=== PATIENT | male | born 1960 | race Caucasian/White ===

== ENCOUNTER → 2016-04-19 | Outpatient (CLI) | payer OTHER ==
[2016-01-08 19:43] VITALS: BP 120/98
[~2016-04-19] MED LIST: ALPR0.5T6 PO; ASPI325T4 PO; ATOR20TA PO; CYCL10TA2 PO; FERR325T72 PO; METH4TAB2 PO; NAPR375T3 PO; PIRF267C PO; PRAS10TA4 PO; PROAIR HFA8.5 GM INH; SERT50TA8 PO; TRIA15CR3 TP
[2016-04-19 23:11] LABS: RHEUMATOID FACTOR 84.7 IU/mL (0.0-13.9)
[2016-04-22 11:15] LABS: SCL 70 ANTIBODY <0.2 AI (0.0-0.9)
== END | disposition home or self-care (01) ==
LOC: LAB 12:28
PROVIDERS: ATTEND Internal Medicine Pulmonary Disease
DX: J84.10 Pulmonary fibrosis, unspecified (principal)
CPT/HCPCS: 36415; 86235; 86431

== ENCOUNTER 2016-05-25 23:10 | Emergency (ER) | payer OTHER ==
[~2016-05-25] VITALS: Ht 177.8 cm; Wt 65.8 kg
[2016-05-25 23:30] LABS: BASO # 0.1 x10^3/uL (0.0-0.2); BASO % 1 % (0-3); EOS % 5 % (0-3); HEMATOCRIT 33.9 % (39.0-53.0); LYMPH # 2.4 x10^3/uL (1.0-4.8); LYMPH % 17 % (24-48); MEAN CORPUSCULAR HEMOGLOBIN 21 pg (25-35); MEAN CORPUSCULAR HGB CONC 30 g/dL (31-37); MEAN CORPUSCULAR VOLUME 71 fL (79-100); MONO % 7 % (0-9); NEUT % 71 % (31-73); PLATELET COUNT 406 x10^3/uL (140-400); RED BLOOD COUNT 4.76 x10^6/uL (4.30-5.70); WHITE BLOOD COUNT 14.6 x10^3/uL (4.0-11.0)
[2016-05-25 23:43] LABS: ANION GAP 9 (6-14); BLOOD UREA NITROGEN 14 mg/dL (8-26); CARBON DIOXIDE 31 mmol/L (21-32); CHLORIDE 102 mmol/L (98-107); CREATININE 0.9 mg/dL (0.7-1.3); GFR 87.3; GLUCOSE 101 mg/dL (70-99); POTASSIUM 3.9 mmol/L (3.5-5.1); SODIUM 142 mmol/L (136-145)
[2016-05-25 23:44] LABS: ANISOCYTOSIS MOD; HYPOCHROMIA MOD; MICROCYTOSIS MOD; PLT ESTIMATE INCREASED (ADEQUATE); POIKILOCYTOSIS SLIGHT; TARGET CELLS FEW
[2016-05-25 23:45] LABS: OVALOCYTES OCC
[2016-05-25] MEDS ORDERED: ASPIRIN 81 MG TAB.CHEW PO ONE (23:45)
[2016-05-25 23:48] LABS: ALBUMIN 3.3 g/dL (3.4-5.0); ALK PHOS 102 U/L (46-116); ALT (SGPT) 13 U/L (16-63); AST (SGOT) 16 U/L (15-37); DIRECT BILIRUBIN < 0.1 mg/dL (0.0-0.2); TOTAL BILIRUBIN 0.2 mg/dL (0.2-1.0); TOTAL PROTEIN 8.2 g/dL (6.4-8.2)
--- NOTE | 2016-05-26 03:13 | PHYS DOC ---
Past Medical History Past Medical History: Anxiety, CAD, Hypertension, LA, Pneumonia, Seizure Additional Past Medical Histor: pulmonary fibrosis Past Surgical History: Tonsillectomy Additional Past Surgical Histo: cardiac cath with 2 stents Alcohol Use: Occasionally Drug Use: Marijuana Adult General Chief Complaint Chief Complaint: CHEST PAIN HPI HPI 55-year-old male presenting to the emergency department today with pain in the left chest which is worse with inspiration. It is sharp nonradiating moderate intermittent and currently improving. He denies unilateral leg swelling history of blood clotting disorder. He denies recent immobilization. He has a history of an LA in the past with 2 stents placed. Otherwise he has hypertension and history of chronic pulmonary fibrosis. Review of systems is negative for abdominal pain nausea vomiting fevers chills and diaphoresis. All other review of systems is negative unless otherwise noted in history of present illness. Review of Systems Review of Systems SEE ABOVE. Current Medications Current Medications Current Medications Medications (Trade) Dose Ordered Sig/Tiana Start Time Stop Time Status Last Admin Dose Admin Aspirin (Children'S Aspirin) 324 mg 1X ONCE 05/25/16 23:45 05/25/16 23:46 DC 05/26/16 00:05 324 MG Allergies Allergies Allergies Coded Allergies Type Severity Reaction Last Updated Verified No Known Drug Allergies 11/14/15 No Physical Exam Physical Exam Constitutional: Well developed, well nourished, no acute distress, non-toxic appearance. HENT: Normocephalic, atraumatic, bilateral external ears normal, oropharynx moist, no oral exudates, nose normal. [] Eyes: PERRLA, EOMI, conjunctiva normal, no discharge. Neck: Normal range of motion, no tenderness, supple, no stridor. [] Cardiovascular:Heart rate regular rhythm, no murmur Lungs & Thorax: Clear lung sounds bilaterally Abdomen: Bowel sounds normal, soft, no tenderness, no masses, no pulsatile masses. [] Skin: Warm, dry, no erythema, no rash. Back: No tenderness, no CVA tenderness. [] Extremities: No tenderness, no cyanosis, no clubbing, ROM intact, no edema. Neurologic: Alert and oriented X 3, normal motor function, normal sensory function, no focal deficits noted. [] Psychologic: Affect normal, judgement normal, mood normal. [] Current Patient Data Vital Signs Vital Signs Date Time Temp Pulse Resp B/P Pulse Ox O2 Delivery O2 Flow Rate FiO2 05/26/16 00:31 110 22 116/77 100 Nasal Cannula 3 05/25/16 23:10 97.8 97.8 Lab Values Laboratory Tests Test 05/25/16 23:20 05/26/16 02:35 White Blood Count 14.6x10^3/uL (4.0-11.0) H Red Blood Count 4.76x10^6/uL (4.30-5.70) Hemoglobin 10.0g/dL (13.0-17.5) L Hematocrit 33.9% (39.0-53.0) L Mean Corpuscular Volume 71fL (79-100) L Mean Corpuscular Hemoglobin 21pg (25-35) L Mean Corpuscular Hemoglobin Concent 30g/dL (31-37) L Red Cell Distribution Width 25.0% (11.5-14.5) H Platelet Count 406x10^3/uL (140-400) H Neutrophils (%) (Auto) 71% (31-73) Lymphocytes (%) (Auto) 17% (24-48) L Monocytes (%) (Auto) 7% (0-9) Eosinophils (%) (Auto) 5% (0-3) H Basophils (%) (Auto) 1% (0-3) Neutrophils # (Auto) 10.3x10^3uL (1.8-7.7) H Lymphocytes # (Auto) 2.4x10^3/uL (1.0-4.8) Monocytes # (Auto) 1.0x10^3/uL (0.0-1.1) Eosinophils # (Auto) 0.8x10^3/uL (0.0-0.7) H Basophils # (Auto) 0.1x10^3/uL (0.0-0.2) Platelet Estimate Increased (ADEQUATE) Hypochromasia Mod Poikilocytosis Slight Anisocytosis Mod Microcytosis Mod Target Cells Few Ovalocytes Occ Sodium Level 142mmol/L (136-145) Potassium Level 3.9mmol/L (3.5-5.1) Chloride Level 102mmol/L (98-107) Carbon Dioxide Level 31mmol/L (21-32) Anion Gap 9 (6-14) Blood Urea Nitrogen 14mg/dL (8-26) Creatinine 0.9mg/dL (0.7-1.3) Estimated GFR (Cockcroft-Gault) 87.3 Glucose Level 101mg/dL (70-99) H Calcium Level 9.0mg/dL (8.5-10.1) Total Bilirubin 0.2mg/dL (0.2-1.0) Direct Bilirubin < 0.1mg/dL (0.0-0.2) Aspartate Amino Transferase (AST) 16U/L (15-37) Alanine Aminotransferase (ALT) 13U/L (16-63) L Alkaline Phosphatase 102U/L (46-116) Troponin I Quantitative < 0.017ng/mL (0.000-0.055) < 0.017ng/mL (0.000-0.055) UX-Jqi-D-Type Natriuretic Peptide 33pg/mL (0-124) Total Protein 8.2g/dL (6.4-8.2) Albumin 3.3g/dL (3.4-5.0) L Lipase 88U/L (73-393) Laboratory Tests 05/25/16 23:20 Laboratory Tests 05/25/16 23:20 EKG EKG [] EKG shows sinus tachycardia. [place] normal. Intervals normal. ST segments are congruent V3 shows variable baseline. Radiology/Procedures Radiology/Procedures [] Chest x-ray shows chronic pulmonary fibrosis similar to previous on 2015. Patient has no clinical symptoms of pneumonia. No cough no fever. Course & Med Decision Making Course & Med Decision Making Pertinent Labs and Imaging studies reviewed. (See chart for details) [] 55-year-old male presenting to the emergency department today with chest pain. Vital signs afebrile with mild tachycardia. Otherwise baseline O2 rate of 3 L which he has at home. EKG showed mild tachycardia. Otherwise unremarkable. Chest x-ray showed chronic pulmonary fibrosis. Patient does not have cough or fever. White blood cell count is elevated however seems to be chronically elevated. After clinical correlation and did not believe this patient has pneumonia. Troponin negative 2. Otherwise blood work unremarkable. I offered admission to the patient for cardiology consultation however the patient declined. He desired to follow-up with his personnel consultant on the outpatient which I felt was reasonable. His doctor is Dr. Rene. I placed his contact information and the discharge paperwork. Follow-up on Friday. Dragon Disclaimer Dragon Disclaimer This electronic medical record was generated, in whole or in part, using a voice recognition dictation system. Departure Departure Impression: Primary Impression: Chest pain Disposition: HOME, SELF-CARE Condition: STABLE Referrals: JOHN DAMON MD (PCP) NEREYDA NOLASCO MD on friday Patient Instructions: Chest Pain (Nonspecific) Additional Instructions: Thank you for allowing us to participate in your care today. Followup with your personnel consultant Dr. Nolasco on Friday. If you do not have a primary care provider you can ask for a list of our primary care providers. Return to the emergency department you have any new or concerning findings. This should be evaluated by the primary care physician and any necessary consulting services for continued management within a few days after discharge. Return to emergency room if you have any new or concerning symptoms including but not limited to fever, chills, nausea, vomiting, intractable pain, any new rashes, chest pain, shortness of air, uncontrolled bleeding, difficulty breathing, and/or vision loss. You may have been prescribed medication that can change in your level of thinking and ability to operate machinery. These medications include hydrocodone and Ativan. Also, Benadryl has been known to do this as well. Be sure to check with your pharmacist and ask if the medications you've prescribed can affect your level of consciousness. I recommend not operating heavy machinery or driving while on medication such as these. MABLE ALLRED MD May 26, 2016 03:13
[2016-05-26 03:27] VITALS: BP 113/79
--- NOTE | 2016-05-26 08:00 | RAD ---
Indication chest pain. A single view of the chest was obtained and is compared to an examination 12/27/2015. Extensive chronic changes are noted. A significant change in the appearance of the chest is not seen. The heart and pulmonary vessels are similar. IMPRESSION: Extensive chronic fibrotic changes. A significant change or acute process is not seen
--- NOTE | 2016-05-26 11:32 | EKG ---
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
== END 2016-05-26 03:50 | disposition home or self-care (01) ==
LOC: ER 23:10
DX: R07.9 Chest pain, unspecified (principal); I25.10 Atherosclerotic heart disease of native coronary artery without angina pectoris; I10 Essential (primary) hypertension; I25.2 Old myocardial infarction; F12.10 Cannabis abuse, uncomplicated; Z95.5 Presence of coronary angioplasty implant and graft
CPT/HCPCS: 36415; 71010; 80048; 80076; 83690; 83880; 84484; 85007; 85027; 93005; 99285-25

== ENCOUNTER 2016-06-21 11:11 | Day surgery (SDC) | payer OTHER ==
[~2016-06-21 11:11] MED LIST changes: +CIPROFLOXACIN 0.3% OPHTH SOLUTION 2.5ML BOTTLE. OS ONE; +EPINEPHRINE 0.2 MG in BALANCED SALT IRR SOLN (BAG) 500 ML IO ONE; +FENTANYL PF 100 MCG/2 ML VIAL. IV PRN; +FLUT9.9S NS; +HYDROMORPHONE 2 MG/ML VIAL. IV PRN; +IV RINGERS,LACTATED 1000ML 1,000 ML IV SCH; +LIDOCAINE 1% 1 ML SYRINGE. ID PRN; +MORPHINE SULFATE 2 MG/ML DISP.SYRIN. IV PRN; +ONDANSETRON PF 4 MG/2 ML VIAL. IV PRN; +PANT40TA5 PO; +PROCHLORPERAZINE 10 MG/2 ML VIAL. IV PRN; +PROPARACAINE 0.5% OPHTH SOLUTION 15ML BOTTLE. OS ONE; +SERT100T PO
[2016-06-21] MEDS ORDERED: NEO/POLYMYX/DEXAMETH OPHTH OINTMENT 3.5GM TUBE. ONE (11:46)
[2016-06-21] MEDS ORDERED: LIDOCAINE 1% PF 2 ML VIAL. ONE (11:47)
[2016-06-21] MEDS: CYCLOPENTOLATE 1% OPTH SOLUTION 2ML BOTTLE. OS SCH ×3 (12:46→12:56)
[2016-06-21] MEDS: PHENYLEPHRINE 10% OPHTH SOLUTION 5ML BOTTLE. OS SCH ×3 (12:46→12:52)
[2016-06-21] MEDS: LIDOCAINE 2% JELLY 6ML IN APPLICATOR. MM PRN ×2 (13:14→13:26)
[2016-06-21] MEDS ORDERED: MIDAZOLAM HCL 2 MG/2 ML VIAL. ONE (14:23)
[2016-06-21] MEDS ORDERED: BALANCED SALT IRRIG OPHTH SOLN 15 ML BOTTLE. IRR ONE (14:49)
[2016-06-21] MEDS ORDERED: CHONDROIT-SOD-HYALURONATE KIT. OS ONE (14:49)
[2016-06-21] MEDS ORDERED: NEO/POLYMYX/DEXAMETH OPHTH OINTMENT 3.5GM TUBE. OS ONE (15:07)
[2016-06-21] MEDS ORDERED: ALBUTEROL SULFATE 2.5 MG/3 ML NEBU. ONE (15:50)
[2016-06-21 16:00] VITALS: BP 120/78
[2016-06-21] MEDS ORDERED: ALBUTEROL SULFATE 2.5 MG/3 ML NEBU. NEB ONE (16:00)
--- NOTE | 2016-06-21 19:15 | OP ---
DATE OF SURGERY: 06/21/2016 PREOPERATIVE DIAGNOSIS: Posterior subcapsular cataract in the left eye. POSTOPERATIVE DIAGNOSIS: Posterior subcapsular cataract in the left eye. PROCEDURE: Phacoemulsification with posterior chamber lens implant, left eye. ANESTHESIA: Topical with MAC. DESCRIPTION OF PROCEDURE: The patient's dilating drops and topical lidocaine were applied in the outpatient area. The patient was then brought to the operating room, positioned on the table. A [place] balloon cuff had been placed for about 15-20 minutes. The left eye was prepped and draped in usual sterile manner for an intraocular procedure and a lid speculum placed between the eyelids. A paracentesis incision was made inferotemporally and lidocaine 1% injected into the anterior chamber. This was followed by injection of Viscoat and then the primary 2.4 mm incision was made temporally. A capsulorrhexis was made with a bent needle and capsulorrhexis forceps and then the lens nucleus hydrodissected. The lens was easily phacoemulsified with the phaco handpiece and then the cortex cleaned up with the I/A handle. Provisc was used to insufflate the bag and a posterior chamber lens placed into the bag without difficulty. The lens was positioned and the eye was pressurized after the viscoelastic had been aspirated. The wound was checked for leaks and there were none. The eye looked good at the end of the case and the lid speculum and drape were removed. Maxitrol ointment was instilled in the conjunctival sac and the eye was shielded. The patient was taken to the recovery room in satisfactory condition. I will follow up with him over the next couple of days. K MARINE FLORES MD DR: JANINE/sundar JOB#: [id number] / [id number]
== END 2016-06-21 16:25 | disposition home or self-care (01) ==
LOC: SURG 11:11
PROVIDERS: ATTEND Ophthalmology
DX: H25.042 Posterior subcapsular polar age-related cataract, left eye (principal); E78.00 Pure hypercholesterolemia, unspecified; I10 Essential (primary) hypertension; J44.9 Chronic obstructive pulmonary disease, unspecified; M19.90 Unspecified osteoarthritis, unspecified site; K21.9 Gastro-esophageal reflux disease without esophagitis; F32.9 Major depressive disorder, single episode, unspecified; Z72.0 Tobacco use; D64.9 Anemia, unspecified; Z87.39 Personal history of other diseases of the musculoskeletal system and connective tissue
CPT/HCPCS: 66984; C1780; J0171; J2250

== ENCOUNTER 2016-07-03 21:13 | Inpatient (IN) | payer OTHER ==
[~2016-07-03] VITALS: Ht 172.7 cm; Wt 53.1 kg
[~2016-07-03 21:13] MED LIST changes: -CIPROFLOXACIN 0.3% OPHTH SOLUTION 2.5ML BOTTLE. OS ONE; -EPINEPHRINE 0.2 MG in BALANCED SALT IRR SOLN (BAG) 500 ML IO ONE; -FENTANYL PF 100 MCG/2 ML VIAL. IV PRN; -HYDROMORPHONE 2 MG/ML VIAL. IV PRN; -IV RINGERS,LACTATED 1000ML 1,000 ML IV SCH; -LIDOCAINE 1% 1 ML SYRINGE. ID PRN; -MORPHINE SULFATE 2 MG/ML DISP.SYRIN. IV PRN; -ONDANSETRON PF 4 MG/2 ML VIAL. IV PRN; -PROCHLORPERAZINE 10 MG/2 ML VIAL. IV PRN; -PROPARACAINE 0.5% OPHTH SOLUTION 15ML BOTTLE. OS ONE
[2016-07-03 21:28] LABS: BASO % 0 % (0-3); EOS % 0 % (0-3); HEMATOCRIT 33.8 % (39.0-53.0); HEMOGLOBIN 10.1 g/dL (13.0-17.5); LYMPH # 1.5 x10^3/uL (1.0-4.8); LYMPH % 4 % (24-48); MEAN CORPUSCULAR HEMOGLOBIN 21 pg (25-35); MEAN CORPUSCULAR HGB CONC 30 g/dL (31-37); MEAN CORPUSCULAR VOLUME 71 fL (79-100); MONO % 4 % (0-9); NEUT % 91 % (31-73); PLATELET COUNT 400 x10^3/uL (140-400); RED BLOOD COUNT 4.78 x10^6/uL (4.30-5.70); RED CELL DISTRIBUTION WIDTH 22.2 % (11.5-14.5); WHITE BLOOD COUNT 36.5 x10^3/uL (4.0-11.0)
[2016-07-03] MEDS ORDERED: ONDANSETRON PF 4 MG/2 ML VIAL. IV PRN (21:30)
[2016-07-03] MEDS ORDERED: methylPREDNISolone SOD SUCC PF 125 MG/2 ML VIAL. IV ONE (21:30)
[2016-07-03] MEDS ORDERED: IPRATRPIUM/ALBUTEROL 0.5/2.5MG 3 ML NEBU. NEB ONE (21:30)
[2016-07-03] MEDS ORDERED: MORPHINE SULFATE 2 MG/ML DISP.SYRIN. IV PRN (21:30)
--- NOTE | 2016-07-03 21:32 | PHYS DOC ---
Past Medical History Past Medical History: Anxiety, CAD, Hypertension, [place], Pneumonia, Seizure Additional Past Medical Histor: pulmonary fibrosis Past Surgical History: Tonsillectomy Additional Past Surgical Histo: cardiac cath with 2 stents Alcohol Use: Occasionally Drug Use: Marijuana Adult General Chief Complaint Chief Complaint: SHORTNESS OF BREATH HPI HPI 56-year-old male with a history of pulmonary fibrosis presenting to the emergency department today with shortness of breath since about 5:00 this evening. He also complains of left sided shoulder pain. His pain is sharp nonradiating intermittent and without alleviating factors. He denies nausea vomiting or diaphoresis. He denies fevers or cough. Review of systems is negative for hemoptysis, unilateral leg swelling, history of blood clotting disorder. Negative for abdominal pain nausea vomiting or diaphoresis. All other review of systems is negative unless otherwise noted in history of present illness. Review of Systems Review of Systems SEE ABOVE. Current Medications Current Medications Current Medications Medications (Trade) Dose Ordered Sig/Tiana Start Time Stop Time Status Last Admin Dose Admin Albuterol/ Ipratropium (Duoneb) 3 ml 1X ONCE 07/03/16 21:30 07/03/16 21:31 DC 07/03/16 22:22 3 ML Methylprednisolone Sodium Succinate (Solu-Medrol 125mg Vial) 125 mg 1X ONCE 07/03/16 21:30 07/03/16 21:31 DC 07/03/16 21:26 125 MG Morphine Sulfate 2 mg PRN Q2HR PRN 07/03/16 21:30 07/04/16 21:29 07/03/16 21:59 2 MG Ondansetron HCl (Zofran) 4 mg PRN Q8HRS PRN 07/03/16 21:30 07/04/16 21:29 Allergies Allergies Allergies Coded Allergies Type Severity Reaction Last Updated Verified No Known Drug Allergies 06/21/16 No Physical Exam Physical Exam Constitutional: Well developed, well nourished, initially the patient was in a tripod position with significant retractions and pursed lipped breathing present. Respiratory distress present. HENT: Normocephalic, atraumatic, bilateral external ears normal, oropharynx moist, no oral exudates, nose normal. Eyes: PERRLA, EOMI, conjunctiva normal, no discharge. [] Neck: Normal range of motion, no tenderness, supple, no stridor. [] Cardiovascular:Heart rate regular rhythm, no murmur Lungs & Thorax: Patient has diffuse crackles and harsh lung sounds on inspiration and expiration with a mildly prolonged expert phase. Wheezing present as well. Abdomen: Bowel sounds normal, soft, no tenderness, no masses, no pulsatile masses. Skin: Warm, dry, no erythema, no rash. [] Back: No tenderness, no CVA tenderness. Extremities: No tenderness, no cyanosis, no clubbing, ROM intact, no edema. [] Neurologic: Alert and oriented X 3, normal motor function, normal sensory function, no focal deficits noted. [] Psychologic: Affect normal, judgement normal, mood normal. Current Patient Data Vital Signs Vital Signs Date Time Temp Pulse Resp B/P Pulse Ox O2 Delivery O2 Flow Rate FiO2 07/03/16 21:35 130 38 127/75 97 BiPAP/CPAP 07/03/16 21:15 99.2 4 99.2 Lab Values Laboratory Tests Test 07/03/16 21:19 White Blood Count 36.5x10^3/uL (4.0-11.0) H Red Blood Count 4.78x10^6/uL (4.30-5.70) Hemoglobin 10.1g/dL (13.0-17.5) L Hematocrit 33.8% (39.0-53.0) L Mean Corpuscular Volume 71fL (79-100) L Mean Corpuscular Hemoglobin 21pg (25-35) L Mean Corpuscular Hemoglobin Concent 30g/dL (31-37) L Red Cell Distribution Width 22.2% (11.5-14.5) H Platelet Count 400x10^3/uL (140-400) Neutrophils (%) (Auto) 91% (31-73) H Lymphocytes (%) (Auto) 4% (24-48) L Monocytes (%) (Auto) 4% (0-9) Eosinophils (%) (Auto) 0% (0-3) Basophils (%) (Auto) 0% (0-3) Neutrophils # (Auto) 33.3x10^3uL (1.8-7.7) H Lymphocytes # (Auto) 1.5x10^3/uL (1.0-4.8) Monocytes # (Auto) 1.5x10^3/uL (0.0-1.1) H Eosinophils # (Auto) 0.0x10^3/uL (0.0-0.7) Basophils # (Auto) 0.0x10^3/uL (0.0-0.2) Segmented Neutrophils % 63% (35-66) Band Neutrophils % 24% (0-9) H Lymphocytes % 8% (24-48) L Monocytes % 5% (0-10) Platelet Estimate Increased (ADEQUATE) Polychromasia Slight Hypochromasia Mod Anisocytosis Mod Microcytosis Mod Sodium Level 136mmol/L (136-145) Potassium Level 3.7mmol/L (3.5-5.1) Chloride Level 97mmol/L (98-107) L Carbon Dioxide Level 27mmol/L (21-32) Anion Gap 12 (6-14) Blood Urea Nitrogen 15mg/dL (8-26) Creatinine 0.9mg/dL (0.7-1.3) Estimated GFR (Cockcroft-Gault) 87.0 Glucose Level 123mg/dL (70-99) H Calcium Level 9.7mg/dL (8.5-10.1) Total Bilirubin 0.4mg/dL (0.2-1.0) Direct Bilirubin 0.1mg/dL (0.0-0.2) Aspartate Amino Transferase (AST) 22U/L (15-37) Alanine Aminotransferase (ALT) 21U/L (16-63) Alkaline Phosphatase 108U/L (46-116) Troponin I Quantitative < 0.017ng/mL (0.000-0.055) PG-Ntn-U-Type Natriuretic Peptide 219pg/mL (0-124) H Total Protein 9.4g/dL (6.4-8.2) H Albumin 3.4g/dL (3.4-5.0) Lipase 44U/L (73-393) L Laboratory Tests 07/03/16 21:19 Laboratory Tests 07/03/16 21:19 EKG EKG [] EKG shows sinus rhythm with a regular rate. [place] mildly leftward. Intervals show mildly prolonged QTC. Otherwise within normal limits. ST segments are congruent. Not suggestive of ischemia. Radiology/Procedures Radiology/Procedures [] Chest x-ray compared to previous on May 26, 2016 shows chronic pulmonary fibrosis without any acute changes. Course & Med Decision Making Course & Med Decision Making Pertinent Labs and Imaging studies reviewed. (See chart for details) [] 56-year-old male presenting to the emergency department with acute respiratory failure. Oxygen saturation was in the mid to high 70s on initial presentation with significant respiratory distress clinically. The patient was placed on face mask which was then transitioned to BiPAP which improved the patient's symptoms and O2 saturations. Chest x-ray shows no acute changes. EKG appears nonischemic. Blood work obtained. Patient was given a DuoNeb in the emergency department along with IV steroids. Patient does not have a fever and otherwise does not have a clinical presentation suggestive of pneumonia. Given the patient's leukocytosis, the patient was covered with IV Rocephin for possible superimposed pneumonia though his clinical symptomatology is not suggestive of pneumonia. I discussed the case with Dr. Jeff who accepted the patient for transition of care at approximately 945pm. Dragon Disclaimer Dragon Disclaimer This electronic medical record was generated, in whole or in part, using a voice recognition dictation system. Departure Departure Impression: Primary Impression: Acute respiratory failure with hypoxia Additional Impressions: Pulmonary fibrosis COPD (chronic obstructive pulmonary disease) Dyspnea Disposition: 09 ADMITTED INPATIENT Admitting Physician: Edy Ovalles Condition: IMPROVED Referrals: JOHN DAMON MD (PCP) Problem Qualifiers MABLE ALLRED MD Jul 03, 2016 21:32
[2016-07-03 21:37] LABS: CALCIUM 9.7 mg/dL (8.5-10.1); CREATININE 0.9 mg/dL (0.7-1.3); POTASSIUM 3.7 mmol/L (3.5-5.1)
[2016-07-03 21:43] LABS: ALBUMIN 3.4 g/dL (3.4-5.0); DIRECT BILIRUBIN 0.1 mg/dL (0.0-0.2); TOTAL BILIRUBIN 0.4 mg/dL (0.2-1.0); TOTAL PROTEIN 9.4 g/dL (6.4-8.2)
[2016-07-03 22:05] LABS: ANISOCYTOSIS MOD; HYPOCHROMIA MOD; MICROCYTOSIS MOD; PLT ESTIMATE INCREASED (ADEQUATE); POLYCHROMASIA SLIGHT
--- NOTE | 2016-07-03 22:28 | ACF ---
Admission Forms Criteria RESPIRATORY FAILURE [facility] Clinical Indications for Admission to Inpatient Care (Place 'X' for any and all applicable criteria): Hospital admission is needed for appropriate care of the patient because of acute respiratory failure or insufficiency as indicated by ANY ONE of the following(1)(2)(3)(4)(5)(6)(7)(8): [X]I. Mechanical ventilation needed (acute invasive or noninvasive) [ ]II. Severe ventilation deficit as indicated by ANY ONE of the following (9) [ ]a) Respiratory acidosis (pH less than 7.32 and partial pressure of carbon dioxide greater than 40 mm Hg (5.3 kPa)) [ ]b) Partial pressure of carbon dioxide greater than 44 mm Hg (5.9 kPa ) (new) [ ]c) Airflow measurements less than 25% of predicted (eg, peak expiratory flow rate less than 100 L/minute) [ ]d) Forced vital capacity less than 15 mL/kg of ideal body weight, or 50% decrease in vital capacity from baseline [ ]III. Noncardiac pulmonary edema not resolving with rapid emergency treatment (8) [ ]IV. Severe respiratory distress as indicated by ANY ONE of the following: [ ]a) Severe tachypnea (respiratory rate greater than 30, greater than 45 for 6-month-old, greater than 60 for ) [ ]b) Severe hypoxemia (partial pressure of oxygen less than 50 mm Hg ( 6.7 kPa) on greater than 50% oxygen or partial pressure of oxygen to FIO2 ratio less than 200) [ ]c) Mental status deterioration from respiratory disease [ ]V. Airway obstruction or inadequate protection [A](10)(11) The original [employer] content created by [employer] has been revised. The portions of the content which have been revised are identified through the use of italic text or in bold, and [employer] has neither reviewed nor approved the modified material. All other unmodified content is copyright [employer]. Please see references footnoted in the original [employer] edition 2016 Admission Criteria Met?: Yes HE MAE Jul 03, 2016 22:28
[2016-07-03 23:21] VITALS: BP 105/62
[2016-07-03] MEDS ORDERED: CEFTRIAXONE 1GM IVPB FOR OMNI 50 ML IV ONE (23:30)
[2016-07-03 23:33] LABS: FIO2 ABG 40; HCO3 ABG 23 mmol/L (21-28); PCO2 ABG 37 mmHg (35-46); PH ABG 7.41 (7.35-7.45); PO2 ABG 114 mmHg (75-108); SAT O2 ABG 98 % (92-99)
[2016-07-03] MEDS ORDERED: DIFL5DRO2 OP (23:36)
[2016-07-03] MEDS ORDERED: IPRA3AMP NEB (23:36)
[2016-07-03 23:37] VITALS: BP 104/64
[2016-07-03 23:45] VITALS: BP 111/65
[2016-07-04] VITALS (14 sets, daily range): BP systolic 93–123; BP diastolic 57–73
[2016-07-04 03:50] LABS: BASO % 0 % (0-3); EOS % 0 % (0-3); HEMATOCRIT 30.1 % (39.0-53.0); HEMOGLOBIN 8.8 g/dL (13.0-17.5); LYMPH % 3 % (24-48); MEAN CORPUSCULAR HEMOGLOBIN 21 pg (25-35); MEAN CORPUSCULAR HGB CONC 29 g/dL (31-37); MEAN CORPUSCULAR VOLUME 71 fL (79-100); MONO % 2 % (0-9); NEUT % 96 % (31-73); PLATELET COUNT 345 x10^3/uL (140-400); RED BLOOD COUNT 4.24 x10^6/uL (4.30-5.70); RED CELL DISTRIBUTION WIDTH 21.8 % (11.5-14.5)
[2016-07-04 04:44] LABS: CALCIUM 8.7 mg/dL (8.5-10.1); CREATININE 0.8 mg/dL (0.7-1.3); GFR 99.6; POTASSIUM 4.5 mmol/L (3.5-5.1)
--- NOTE | 2016-07-04 06:35 | EKG ---
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
--- NOTE | 2016-07-04 07:55 | RAD ---
EXAM: Chest, single view. HISTORY: Chest pain. COMPARISON: 05/26/2016. FINDINGS: A frontal view of the chest is obtained. There has been no significant change in predominantly peripheral right apical and bilateral lower lobe coarse increased interstitial markings likely due to chronic interstitial lung disease. This includes areas of bronchiectasis and honeycombing. There is stable right hemithorax volume loss with rightward deviation of the trachea. There is no effusion or pneumothorax. There is no cardiomegaly. IMPRESSION: Stable findings consistent with chronic interstitial lung disease, including areas of bronchiectasis, honeycombing and right apical architectural distortion. This limits evaluation for underlying interstitial infiltrate.
[2016-07-04] MEDS: IPRATRPIUM/ALBUTEROL 0.5/2.5MG 3 ML NEBU. NEB SCH ×4 (08:01→18:09)
[2016-07-04] MEDS ORDERED: SERT100T PO (08:34)
--- NOTE | 2016-07-04 08:44 | PDOC ---
PROGRESS NOTES Subjective Subjective Patient reports breathing is much better than at admission. Objective Objective Vital Signs Date Time Temp Pulse Resp B/P Pulse Ox O2 Delivery O2 Flow Rate FiO2 07/04/16 08:02 100 Nasal Cannula 2.0 07/04/16 07:00 97 18 123/65 07/04/16 04:00 97.9 97.9 Intake and Output 07/04/16 07:00 Intake Total 230 ml Balance 230 ml Intake Oral 180 ml IV Total 50 ml Physical Exam Abdomen: Normal bowel sounds, Soft, No tenderness Heart: Regular rate Extremities: No edema General: Alert, Oriented X3, No acute distress Lungs: Other (dry crackles throughout, mild expiratory wheezes) Assessment Assessment Problems Medical Problems: (1) Acute respiratory failure with hypoxia Status: Acute (2) COPD (chronic obstructive pulmonary disease) Status: Acute (3) Dyspnea Status: Acute (4) Pulmonary fibrosis Status: Acute Plan Plan of Care 1. Acute on chronic respiratory failure with pulmonary fibrosis - patient required Bipap for a short time last night, now breathing comfortably at rest on O2 per NC. CXR without acute infiltrate. Pulmonary consult pending. Continue O2 and nebs, patient received one large dose of Solumedrol in ER. 2. chest pain with history of CAD - patient received a stent last summer and has apparently had no follow up with Cardiology since then. He reports a history of some intermittent chest pains recently. The pain was worse last evening when he was struggling to breath, but seems to have occurred at other times also. Troponin is WNL. Cardiology consult pending. Patient denies any CP at this time. Continue ASA and statin. 3. chronic anxiety and depression - continue home meds. 4. leukocytosis - patient's WBC's were markedly elevated at admission, even before receiving steroids. Hgb also decreased. Will follow lab and consider further evaluation if indicated. 5. hyperglycemia - check A1C. Patient denies history of DM. Comment Review of Relevant I have reviewed the following items claribel (where applicable) has been applied. Labs Laboratory Tests Test 07/03/16 21:19 07/03/16 22:30 07/03/16 23:30 07/04/16 03:35 White Blood Count 36.5x10^3/uL (4.0-11.0) 37.0x10^3/uL (4.0-11.0) Red Blood Count 4.78x10^6/uL (4.30-5.70) 4.24x10^6/uL (4.30-5.70) Hemoglobin 10.1g/dL (13.0-17.5) 8.8g/dL (13.0-17.5) Hematocrit 33.8% (39.0-53.0) 30.1% (39.0-53.0) Mean Corpuscular Volume 71fL (79-100) 71fL (79-100) Mean Corpuscular Hemoglobin 21pg (25-35) 21pg (25-35) Mean Corpuscular Hemoglobin Concent 30g/dL (31-37) 29g/dL (31-37) Red Cell Distribution Width 22.2% (11.5-14.5) 21.8% (11.5-14.5) Platelet Count 400x10^3/uL (140-400) 345x10^3/uL (140-400) Neutrophils (%) (Auto) 91% (31-73) 96% (31-73) Lymphocytes (%) (Auto) 4% (24-48) 3% (24-48) Monocytes (%) (Auto) 4% (0-9) 2% (0-9) Eosinophils (%) (Auto) 0% (0-3) 0% (0-3) Basophils (%) (Auto) 0% (0-3) 0% (0-3) Neutrophils # (Auto) 33.3x10^3uL (1.8-7.7) 35.3x10^3uL (1.8-7.7) Lymphocytes # (Auto) 1.5x10^3/uL (1.0-4.8) 1.0x10^3/uL (1.0-4.8) Monocytes # (Auto) 1.5x10^3/uL (0.0-1.1) 0.7x10^3/uL (0.0-1.1) Eosinophils # (Auto) 0.0x10^3/uL (0.0-0.7) 0.0x10^3/uL (0.0-0.7) Basophils # (Auto) 0.0x10^3/uL (0.0-0.2) 0.0x10^3/uL (0.0-0.2) Segmented Neutrophils % 63% (35-66) Band Neutrophils % 24% (0-9) Lymphocytes % 8% (24-48) Monocytes % 5% (0-10) Platelet Estimate Increased (ADEQUATE) Polychromasia Slight Hypochromasia Mod Anisocytosis Mod Microcytosis Mod Sodium Level 136mmol/L (136-145) 135mmol/L (136-145) Potassium Level 3.7mmol/L (3.5-5.1) 4.5mmol/L (3.5-5.1) Chloride Level 97mmol/L (98-107) 99mmol/L (98-107) Carbon Dioxide Level 27mmol/L (21-32) 27mmol/L (21-32) Anion Gap 12 (6-14) 9 (6-14) Blood Urea Nitrogen 15mg/dL (8-26) 19mg/dL (8-26) Creatinine 0.9mg/dL (0.7-1.3) 0.8mg/dL (0.7-1.3) Estimated GFR (Cockcroft-Gault) 87.0 99.6 Glucose Level 123mg/dL (70-99) 142mg/dL (70-99) Calcium Level 9.7mg/dL (8.5-10.1) 8.7mg/dL (8.5-10.1) Total Bilirubin 0.4mg/dL (0.2-1.0) Direct Bilirubin 0.1mg/dL (0.0-0.2) Aspartate Amino Transf (AST/SGOT) 22U/L (15-37) Alanine Aminotransferase (ALT/SGPT) 21U/L (16-63) Alkaline Phosphatase 108U/L (46-116) Troponin I Quantitative < 0.017ng/mL (0.000-0.055) < 0.017ng/mL (0.000-0.055) SH-Lwl-I-Type Natriuretic Peptide 219pg/mL (0-124) Total Protein 9.4g/dL (6.4-8.2) Albumin 3.4g/dL (3.4-5.0) Lipase 44U/L (73-393) O2 Saturation 98% (92-99) Arterial Blood pH 7.41 (7.35-7.45) Arterial Blood pCO2 at Patient Temp 37mmHg (35-46) Arterial Blood pO2 at Patient Temp 114mmHg (75-108) Arterial Blood HCO3 23mmol/L (21-28) Arterial Blood Base Excess -1mmol/L (-3-3) FiO2 40 Lactic Acid Level 0.8mmol/L (0.4-2.0) Laboratory Tests Test 07/03/16 21:19 07/03/16 22:30 07/03/16 23:30 07/04/16 03:35 White Blood Count 36.5x10^3/uL (4.0-11.0) 37.0x10^3/uL (4.0-11.0) Red Blood Count 4.78x10^6/uL (4.30-5.70) 4.24x10^6/uL (4.30-5.70) Hemoglobin 10.1g/dL (13.0-17.5) 8.8g/dL (13.0-17.5) Hematocrit 33.8% (39.0-53.0) 30.1% (39.0-53.0) Mean Corpuscular Volume 71fL (79-100) 71fL (79-100) Mean Corpuscular Hemoglobin 21pg (25-35) 21pg (25-35) Mean Corpuscular Hemoglobin Concent 30g/dL (31-37) 29g/dL (31-37) Red Cell Distribution Width 22.2% (11.5-14.5) 21.8% (11.5-14.5) Platelet Count 400x10^3/uL (140-400) 345x10^3/uL (140-400) Neutrophils (%) (Auto) 91% (31-73) 96% (31-73) Lymphocytes (%) (Auto) 4% (24-48) 3% (24-48) Monocytes (%) (Auto) 4% (0-9) 2% (0-9) Eosinophils (%) (Auto) 0% (0-3) 0% (0-3) Basophils (%) (Auto) 0% (0-3) 0% (0-3) Neutrophils # (Auto) 33.3x10^3uL (1.8-7.7) 35.3x10^3uL (1.8-7.7) Lymphocytes # (Auto) 1.5x10^3/uL (1.0-4.8) 1.0x10^3/uL (1.0-4.8) Monocytes # (Auto) 1.5x10^3/uL (0.0-1.1) 0.7x10^3/uL (0.0-1.1) Eosinophils # (Auto) 0.0x10^3/uL (0.0-0.7) 0.0x10^3/uL (0.0-0.7) Basophils # (Auto) 0.0x10^3/uL (0.0-0.2) 0.0x10^3/uL (0.0-0.2) Segmented Neutrophils % 63% (35-66) Band Neutrophils % 24% (0-9) Lymphocytes % 8% (24-48) Monocytes % 5% (0-10) Platelet Estimate Increased (ADEQUATE) Polychromasia Slight Hypochromasia Mod Anisocytosis Mod Microcytosis Mod Sodium Level 136mmol/L (136-145) 135mmol/L (136-145) Potassium Level 3.7mmol/L (3.5-5.1) 4.5mmol/L (3.5-5.1) Chloride Level 97mmol/L (98-107) 99mmol/L (98-107) Carbon Dioxide Level 27mmol/L (21-32) 27mmol/L (21-32) Anion Gap 12 (6-14) 9 (6-14) Blood Urea Nitrogen 15mg/dL (8-26) 19mg/dL (8-26) Creatinine 0.9mg/dL (0.7-1.3) 0.8mg/dL (0.7-1.3) Estimated GFR (Cockcroft-Gault) 87.0 99.6 Glucose Level 123mg/dL (70-99) 142mg/dL (70-99) Calcium Level 9.7mg/dL (8.5-10.1) 8.7mg/dL (8.5-10.1) Total Bilirubin 0.4mg/dL (0.2-1.0) Direct Bilirubin 0.1mg/dL (0.0-0.2) Aspartate Amino Transf (AST/SGOT) 22U/L (15-37) Alanine Aminotransferase (ALT/SGPT) 21U/L (16-63) Alkaline Phosphatase 108U/L (46-116) Troponin I Quantitative < 0.017ng/mL (0.000-0.055) < 0.017ng/mL (0.000-0.055) FX-Rxq-U-Type Natriuretic Peptide 219pg/mL (0-124) Total Protein 9.4g/dL (6.4-8.2) Albumin 3.4g/dL (3.4-5.0) Lipase 44U/L (73-393) O2 Saturation 98% (92-99) Arterial Blood pH 7.41 (7.35-7.45) Arterial Blood pCO2 at Patient Temp 37mmHg (35-46) Arterial Blood pO2 at Patient Temp 114mmHg (75-108) Arterial Blood HCO3 23mmol/L (21-28) Arterial Blood Base Excess -1mmol/L (-3-3) FiO2 40 Lactic Acid Level 0.8mmol/L (0.4-2.0) Medications Current Medications Albuterol/ Ipratropium (Duoneb) 3 ml 1X ONCE NEB Last administered on 22:22; Start 07/03/16 at 21:30; Stop 07/03/16 at 21:31; Status DC Methylprednisolone Sodium Succinate (Solu-Medrol 125mg Vial) 125 mg 1X ONCE IV Last administered on 07/03/16 21:26; Start 07/03/16 at 21:30; Stop 07/03/16 at 21:31; Status DC Ondansetron HCl (Zofran) 4 mg PRN Q8HRS PRN IV NAUSEA/VOMITING; Start 07/03/16 at 21:30; Stop 07/04/16 at 21:29 Morphine Sulfate 2 mg PRN Q2HR PRN IV SEVERE PAIN Last administered on 21:59; Start 07/03/16 at 21:30; Stop 07/04/16 at 21:29 Albuterol/ Ipratropium 3 ml 3 ml RTQID NEB Last administered on 07/04/16 08:01 ; Start 07/04/16 at 08:00; Stop 07/05/16 at 07:59 Ceftriaxone Sodium (Rocephin 1gm Ivpb For Omni) 50 ml @ 100 mls/hr 1X ONCE IV Last administered on 07/04/16t 00:31; Start 07/03/16 at 23:30; Stop 07/03/16 at 23:59; Status DC Alprazolam (Xanax) 0.5 mg PRN Q8HRS PRN PO ANXIETY / AGITATION; Start 07/04/16 at 08:30 Aspirin (Nelson Aspirin) 325 mg DAILYWBKFT PO ; Start 07/04/16 at 09:00 Atorvastatin Calcium (Lipitor) 20 mg QHS PO ; Start 07/04/16 at 21:00 Cyclobenzaprine HCl (Flexeril) 10 mg TID PO ; Start 07/04/16 at 09:00 Pantoprazole Sodium (Protonix) 40 mg DAILYAC PO ; Start 07/04/16 at 09:00 Non-Formulary Medication 1 tab BID PO ; Start 07/04/16 at 09:00; Status UNV Active Scripts Active Zoloft (Sertraline Hcl) 100 Mg Tablet 1 Tab PO DAILY Cyclobenzaprine Hcl 10 Mg Tablet 1 Tab PO TID Naproxen 375 Mg Tablet 1 Tab PO BID Alprazolam 0.5 Mg Tablet 0.5 Mg PO Q8H PRN Lipitor (Atorvastatin Calcium) 20 Mg Tablet 1 Tab PO DAILY Aspirin 325 Mg Tablet 1 Tab PO DAILY Reported Duoneb 0.5-3(2.5) Mg/3 Ml (Albuterol/Ipratropium) 3 Ml Ampul.neb 3 Ml NEB QID Durezol (Difluprednate) 5 Ml Drops 5 Ml OP TID Pantoprazole Sodium 40 Mg Tablet.dr 40 Mg PO DAILY Esbriet (Pirfenidone) 267 Mg Capsule 3 Cap PO TID Proair Hfa Inhaler (Albuterol Sulfate) 8.5 Gm Hfa.aer.ad 1-2 Puff INH PRN Q6HRS PRN Vitals/I & O Vital Sign - Last 24 Hours 07/03/16 07/03/16 07/03/16 07/03/16 21:15 21:35 21:45 21:59 Temp 99.2 99.2 Pulse 132 130 130 Resp 43 38 27 37 B/P 145/83 127/75 130/77 Pulse Ox 72 97 100 O2 Delivery Nasal Cannula BiPAP/CPAP BiPAP/CPAP BiPAP/CPAP O2 Flow Rate 4 07/03/16 07/03/16 07/03/16 07/03/16 22:00 22:03 22:22 22:30 Pulse 130 126 Resp 27 29 B/P 139/79 122/76 Pulse Ox 100 95 98 100 O2 Delivery BiPAP/CPAP BiPAP/CPAP BiPAP/CPAP BiPAP/CPAP 07/03/16 07/03/16 07/03/16 07/03/16 22:31 23:00 23:10 23:15 Pulse 122 Resp 31 26 B/P 108/70 Pulse Ox 98 100 100 O2 Delivery BiPAP/CPAP BiPAP/CPAP BiPAP/CPAP Bi-pap 07/03/16 07/03/16 07/03/16 07/04/16 23:21 23:37 23:45 01:01 Temp 98.3 98.3 Pulse 117 116 116 109 Resp 24 23 B/P 105/62 104/64 111/65 106/65 Pulse Ox 100 100 100 100 O2 Delivery BiPAP/CPAP BiPAP/CPAP BiPAP/CPAP BiPAP/CPAP 07/04/16 07/04/16 07/04/16 07/04/16 01:43 02:00 03:00 03:49 Pulse 108 103 Resp 26 B/P 110/67 99/58 Pulse Ox 100 99 100 O2 Delivery BiPAP/CPAP Nasal Cannula Nasal Cannula Nasal Cannula O2 Flow Rate 4.0 4.0 2.0 07/04/16 07/04/16 07/04/16 07/04/16 04:00 05:00 06:00 07:00 Temp 97.9 97.9 Pulse 97 98 96 97 Resp 20 18 B/P 96/62 106/59 95/57 123/65 Pulse Ox 100 98 96 100 O2 Delivery Nasal Cannula Nasal Cannula Nasal Cannula Nasal Cannula O2 Flow Rate 2.0 2.0 2.0 2.0 07/04/16 08:02 Pulse Ox 100 O2 Delivery Nasal Cannula O2 Flow Rate 2.0 Intake and Output 07/03/16 07/03/16 07/04/16 15:00 23:00 07:00 Intake Total 230 ml Balance 230 ml JOHN DOWD MD Jul 04, 2016 08:44
--- NOTE | 2016-07-04 08:54 | PDOC ---
PULMONARY PROGRESS NOTES Vitals Vital Signs Date Time Temp Pulse Resp B/P Pulse Ox O2 Delivery O2 Flow Rate FiO2 07/04/16 08:02 100 Nasal Cannula 2.0 07/04/16 07:00 97 18 123/65 07/04/16 04:00 97.9 97.9 General: Alert, No acute distress Lungs: Crackles Cardiovascular: S1, S2 Abdomen: Soft Extremities: No Edema Labs Laboratory Tests Test 07/03/16 21:19 07/03/16 22:30 07/03/16 23:30 07/04/16 03:35 White Blood Count 36.5x10^3/uL (4.0-11.0) 37.0x10^3/uL (4.0-11.0) Red Blood Count 4.78x10^6/uL (4.30-5.70) 4.24x10^6/uL (4.30-5.70) Hemoglobin 10.1g/dL (13.0-17.5) 8.8g/dL (13.0-17.5) Hematocrit 33.8% (39.0-53.0) 30.1% (39.0-53.0) Mean Corpuscular Volume 71fL (79-100) 71fL (79-100) Mean Corpuscular Hemoglobin 21pg (25-35) 21pg (25-35) Mean Corpuscular Hemoglobin Concent 30g/dL (31-37) 29g/dL (31-37) Red Cell Distribution Width 22.2% (11.5-14.5) 21.8% (11.5-14.5) Platelet Count 400x10^3/uL (140-400) 345x10^3/uL (140-400) Neutrophils (%) (Auto) 91% (31-73) 96% (31-73) Lymphocytes (%) (Auto) 4% (24-48) 3% (24-48) Monocytes (%) (Auto) 4% (0-9) 2% (0-9) Eosinophils (%) (Auto) 0% (0-3) 0% (0-3) Basophils (%) (Auto) 0% (0-3) 0% (0-3) Neutrophils # (Auto) 33.3x10^3uL (1.8-7.7) 35.3x10^3uL (1.8-7.7) Lymphocytes # (Auto) 1.5x10^3/uL (1.0-4.8) 1.0x10^3/uL (1.0-4.8) Monocytes # (Auto) 1.5x10^3/uL (0.0-1.1) 0.7x10^3/uL (0.0-1.1) Eosinophils # (Auto) 0.0x10^3/uL (0.0-0.7) 0.0x10^3/uL (0.0-0.7) Basophils # (Auto) 0.0x10^3/uL (0.0-0.2) 0.0x10^3/uL (0.0-0.2) Segmented Neutrophils % 63% (35-66) Band Neutrophils % 24% (0-9) Lymphocytes % 8% (24-48) Monocytes % 5% (0-10) Platelet Estimate Increased (ADEQUATE) Polychromasia Slight Hypochromasia Mod Anisocytosis Mod Microcytosis Mod Sodium Level 136mmol/L (136-145) 135mmol/L (136-145) Potassium Level 3.7mmol/L (3.5-5.1) 4.5mmol/L (3.5-5.1) Chloride Level 97mmol/L (98-107) 99mmol/L (98-107) Carbon Dioxide Level 27mmol/L (21-32) 27mmol/L (21-32) Anion Gap 12 (6-14) 9 (6-14) Blood Urea Nitrogen 15mg/dL (8-26) 19mg/dL (8-26) Creatinine 0.9mg/dL (0.7-1.3) 0.8mg/dL (0.7-1.3) Estimated GFR (Cockcroft-Gault) 87.0 99.6 Glucose Level 123mg/dL (70-99) 142mg/dL (70-99) Calcium Level 9.7mg/dL (8.5-10.1) 8.7mg/dL (8.5-10.1) Total Bilirubin 0.4mg/dL (0.2-1.0) Direct Bilirubin 0.1mg/dL (0.0-0.2) Aspartate Amino Transf (AST/SGOT) 22U/L (15-37) Alanine Aminotransferase (ALT/SGPT) 21U/L (16-63) Alkaline Phosphatase 108U/L (46-116) Troponin I Quantitative < 0.017ng/mL (0.000-0.055) < 0.017ng/mL (0.000-0.055) QS-Xce-M-Type Natriuretic Peptide 219pg/mL (0-124) Total Protein 9.4g/dL (6.4-8.2) Albumin 3.4g/dL (3.4-5.0) Lipase 44U/L (73-393) O2 Saturation 98% (92-99) Arterial Blood pH 7.41 (7.35-7.45) Arterial Blood pCO2 at Patient Temp 37mmHg (35-46) Arterial Blood pO2 at Patient Temp 114mmHg (75-108) Arterial Blood HCO3 23mmol/L (21-28) Arterial Blood Base Excess -1mmol/L (-3-3) FiO2 40 Lactic Acid Level 0.8mmol/L (0.4-2.0) Laboratory Tests Test 07/03/16 21:19 07/03/16 22:30 07/03/16 23:30 07/04/16 03:35 White Blood Count 36.5x10^3/uL (4.0-11.0) 37.0x10^3/uL (4.0-11.0) Red Blood Count 4.78x10^6/uL (4.30-5.70) 4.24x10^6/uL (4.30-5.70) Hemoglobin 10.1g/dL (13.0-17.5) 8.8g/dL (13.0-17.5) Hematocrit 33.8% (39.0-53.0) 30.1% (39.0-53.0) Mean Corpuscular Volume 71fL (79-100) 71fL (79-100) Mean Corpuscular Hemoglobin 21pg (25-35) 21pg (25-35) Mean Corpuscular Hemoglobin Concent 30g/dL (31-37) 29g/dL (31-37) Red Cell Distribution Width 22.2% (11.5-14.5) 21.8% (11.5-14.5) Platelet Count 400x10^3/uL (140-400) 345x10^3/uL (140-400) Neutrophils (%) (Auto) 91% (31-73) 96% (31-73) Lymphocytes (%) (Auto) 4% (24-48) 3% (24-48) Monocytes (%) (Auto) 4% (0-9) 2% (0-9) Eosinophils (%) (Auto) 0% (0-3) 0% (0-3) Basophils (%) (Auto) 0% (0-3) 0% (0-3) Neutrophils # (Auto) 33.3x10^3uL (1.8-7.7) 35.3x10^3uL (1.8-7.7) Lymphocytes # (Auto) 1.5x10^3/uL (1.0-4.8) 1.0x10^3/uL (1.0-4.8) Monocytes # (Auto) 1.5x10^3/uL (0.0-1.1) 0.7x10^3/uL (0.0-1.1) Eosinophils # (Auto) 0.0x10^3/uL (0.0-0.7) 0.0x10^3/uL (0.0-0.7) Basophils # (Auto) 0.0x10^3/uL (0.0-0.2) 0.0x10^3/uL (0.0-0.2) Segmented Neutrophils % 63% (35-66) Band Neutrophils % 24% (0-9) Lymphocytes % 8% (24-48) Monocytes % 5% (0-10) Platelet Estimate Increased (ADEQUATE) Polychromasia Slight Hypochromasia Mod Anisocytosis Mod Microcytosis Mod Sodium Level 136mmol/L (136-145) 135mmol/L (136-145) Potassium Level 3.7mmol/L (3.5-5.1) 4.5mmol/L (3.5-5.1) Chloride Level 97mmol/L (98-107) 99mmol/L (98-107) Carbon Dioxide Level 27mmol/L (21-32) 27mmol/L (21-32) Anion Gap 12 (6-14) 9 (6-14) Blood Urea Nitrogen 15mg/dL (8-26) 19mg/dL (8-26) Creatinine 0.9mg/dL (0.7-1.3) 0.8mg/dL (0.7-1.3) Estimated GFR (Cockcroft-Gault) 87.0 99.6 Glucose Level 123mg/dL (70-99) 142mg/dL (70-99) Calcium Level 9.7mg/dL (8.5-10.1) 8.7mg/dL (8.5-10.1) Total Bilirubin 0.4mg/dL (0.2-1.0) Direct Bilirubin 0.1mg/dL (0.0-0.2) Aspartate Amino Transf (AST/SGOT) 22U/L (15-37) Alanine Aminotransferase (ALT/SGPT) 21U/L (16-63) Alkaline Phosphatase 108U/L (46-116) Troponin I Quantitative < 0.017ng/mL (0.000-0.055) < 0.017ng/mL (0.000-0.055) IX-Nfd-H-Type Natriuretic Peptide 219pg/mL (0-124) Total Protein 9.4g/dL (6.4-8.2) Albumin 3.4g/dL (3.4-5.0) Lipase 44U/L (73-393) O2 Saturation 98% (92-99) Arterial Blood pH 7.41 (7.35-7.45) Arterial Blood pCO2 at Patient Temp 37mmHg (35-46) Arterial Blood pO2 at Patient Temp 114mmHg (75-108) Arterial Blood HCO3 23mmol/L (21-28) Arterial Blood Base Excess -1mmol/L (-3-3) FiO2 40 Lactic Acid Level 0.8mmol/L (0.4-2.0) Medications Active Scripts Medications Dose Route/Sig Days Date Category Zoloft (Sertraline Hcl) 100 Mg Tablet 1 Tab PO DAILY 07/04/16 Rx Duoneb 0.5-3(2.5) Mg/3 Ml (Albuterol/Ipratropium) 3 Ml Ampul.neb 3 Ml NEB QID 07/03/16 Reported Durezol (Difluprednate) 5 Ml Drops 5 Ml OP TID 07/03/16 Reported Pantoprazole Sodium 40 Mg Tablet.dr 40 Mg PO DAILY 06/18/16 Reported Cyclobenzaprine Hcl 10 Mg Tablet 1 Tab PO TID 01/08/16 Rx Naproxen 375 Mg Tablet 1 Tab PO BID 01/08/16 Rx Alprazolam 0.5 Mg Tablet 0.5 Mg PO Q8H PRN 12/29/15 Rx Esbriet (Pirfenidone) 267 Mg Capsule 3 Cap PO TID 12/28/15 Reported Proair Hfa Inhaler (Albuterol Sulfate) 8.5 Gm Hfa.aer.ad 1-2 Puff INH PRN Q6HRS PRN 11/17/15 Reported Lipitor (Atorvastatin Calcium) 20 Mg Tablet 1 Tab PO DAILY 11/17/15 Rx Aspirin 325 Mg Tablet 1 Tab PO DAILY 11/17/15 Rx RAMYA THURMAN MD Jul 04, 2016 08:54
[2016-07-04] MEDS ORDERED: PANTOPRAZOLE 40 MG TABLET. PO SCH (09:00)
[2016-07-04] MEDS ORDERED: CYCLOBENZAPRINE 10 MG TABLET. PO SCH (09:00)
--- NOTE | 2016-07-04 09:07 | PDOC2 ---
CARDIAC CONSULT DATE OF CONSULT Date of Consult DATE: 07/04/16 TIME: 08:56 REASON FOR CONSULT Reason for Consult: Chest Pain REFERRING PHYSICIAN Referring Physician: Dr. Schuler SOURCE Source: Chart review HISTORY OF PRESENT ILLNESS HISTORY OF PRESENT ILLNESS This is a 56 yo male, with a history of pulmonary fibrosis, who presented with complaints of shortness of breath, cough, and chest pain. Patient reports SOA has been ongoing for the last couple of days; progressively worsening. Cough ongoing for the last coupe of weeks with green sputum. Chest pain began last night. Describes as stabbing pressure. Located in his left chest and radiated to his left shoulder. Associated with mild nausea and diaphoresis. No exacerbating or relieving factors. Subsided and has not returned. Breathing also improved. PAST MEDICAL HISTORY Past Medical History Cardiovascular: CAD (PCI/BMS LAD 11/2015 ), [place], HTN, HLP Pulmonary: COPD, Other (pulmonary fibrosis; previous thoracic injury associated with fall from tree of 35-40 feet; T6 fracture with severe residual neck pain ) CENTRAL NERVOUS SYSTEM: Seizure (last episode 18 years ago) GI: GERD Heme/Onc: Anemia NOS Hepatobiliary: No pertinent hx Psych: Anxiety, Depression Musculoskeletal: Osteoarthritis, Other (cervical neck pain ) Rheumatologic: No pertinent hx Infectious disease: No pertinent hx ENT: No pertinent hx Renal/: No pertinent hx Endocrine: No pertinent hx Dermatology: No pertinent hx Pulmonary: Other (pulmonary fibrosis ) PAST SURGICAL HISTORY Past Surgical History: Tonsillectomy, Other (see PMH) FAMILY HISTORY Family History: Heart Disease, Hypertension SOCIAL HISTORY Smoke: No ALCOHOL: occassional Drugs: Marijuana (daily ) Lives: with Family CURRENT MEDICATIONS CURRENT MEDICATIONS Current Medications Medications (Trade) Dose Ordered Sig/Tiana Route PRN Reason Start Time Stop Time Status Last Admin Dose Admin Albuterol/ Ipratropium (Duoneb) 3 ml 1X ONCE NEB 07/03/16 21:30 07/03/16 21:31 DC 07/03/16 22:22 Methylprednisolone Sodium Succinate (Solu-Medrol 125mg Vial) 125 mg 1X ONCE IV 07/03/16 21:30 07/03/16 21:31 DC 07/03/16 21:26 Morphine Sulfate 2 mg PRN Q2HR PRN IV SEVERE PAIN 07/03/16 21:30 07/04/16 21:29 07/03/16 21:59 Albuterol/ Ipratropium 3 ml 3 ml RTQID NEB 07/04/16 08:00 07/05/16 07:59 07/04/16 08:01 Ceftriaxone Sodium (Rocephin 1gm Ivpb For Omni) 50 ml @ 100 mls/hr 1X ONCE IV 07/03/16 23:30 07/03/16 23:59 DC 07/04/16 00:31 ALLERGIES ALLERGIES: Coded Allergies: No Known Drug Allergies (Unverified , 06/21/16) ROS Review of System 14 point ROS conducted with pertinent positives noted above in HPI. PHYSICAL EXAM General: Alert, Oriented X3, Cooperative, No acute distress HEENT: Atraumatic, Mucous membr. moist/pink Lungs: Other (mild diffuse ext wheezing) Heart: Regular rate, Normal S1, Normal S2 Abdomen: Soft, No tenderness Extremities: No edema, Normal pulses Skin: No breakdown, No significant lesion Neuro: Normal speech, Sensation intact Psych/Mental Status: Mental status NL, Mood NL MUSCULOSKELETAL: Osteoarthritic changes both hands VITALS VITALS Vital Signs Date Time Temp Pulse Resp B/P Pulse Ox O2 Delivery O2 Flow Rate FiO2 07/04/16 08:02 100 Nasal Cannula 2.0 07/04/16 07:00 97 18 123/65 07/04/16 04:00 97.9 97.9 LABS Lab: Laboratory Tests Test 07/03/16 21:19 07/03/16 22:30 07/03/16 23:30 07/04/16 03:35 White Blood Count 36.5x10^3/uL (4.0-11.0) 37.0x10^3/uL (4.0-11.0) Red Blood Count 4.78x10^6/uL (4.30-5.70) 4.24x10^6/uL (4.30-5.70) Hemoglobin 10.1g/dL (13.0-17.5) 8.8g/dL (13.0-17.5) Hematocrit 33.8% (39.0-53.0) 30.1% (39.0-53.0) Mean Corpuscular Volume 71fL (79-100) 71fL (79-100) Mean Corpuscular Hemoglobin 21pg (25-35) 21pg (25-35) Mean Corpuscular Hemoglobin Concent 30g/dL (31-37) 29g/dL (31-37) Red Cell Distribution Width 22.2% (11.5-14.5) 21.8% (11.5-14.5) Platelet Count 400x10^3/uL (140-400) 345x10^3/uL (140-400) Neutrophils (%) (Auto) 91% (31-73) 96% (31-73) Lymphocytes (%) (Auto) 4% (24-48) 3% (24-48) Monocytes (%) (Auto) 4% (0-9) 2% (0-9) Eosinophils (%) (Auto) 0% (0-3) 0% (0-3) Basophils (%) (Auto) 0% (0-3) 0% (0-3) Neutrophils # (Auto) 33.3x10^3uL (1.8-7.7) 35.3x10^3uL (1.8-7.7) Lymphocytes # (Auto) 1.5x10^3/uL (1.0-4.8) 1.0x10^3/uL (1.0-4.8) Monocytes # (Auto) 1.5x10^3/uL (0.0-1.1) 0.7x10^3/uL (0.0-1.1) Eosinophils # (Auto) 0.0x10^3/uL (0.0-0.7) 0.0x10^3/uL (0.0-0.7) Basophils # (Auto) 0.0x10^3/uL (0.0-0.2) 0.0x10^3/uL (0.0-0.2) Segmented Neutrophils % 63% (35-66) Band Neutrophils % 24% (0-9) Lymphocytes % 8% (24-48) Monocytes % 5% (0-10) Platelet Estimate Increased (ADEQUATE) Polychromasia Slight Hypochromasia Mod Anisocytosis Mod Microcytosis Mod Sodium Level 136mmol/L (136-145) 135mmol/L (136-145) Potassium Level 3.7mmol/L (3.5-5.1) 4.5mmol/L (3.5-5.1) Chloride Level 97mmol/L (98-107) 99mmol/L (98-107) Carbon Dioxide Level 27mmol/L (21-32) 27mmol/L (21-32) Anion Gap 12 (6-14) 9 (6-14) Blood Urea Nitrogen 15mg/dL (8-26) 19mg/dL (8-26) Creatinine 0.9mg/dL (0.7-1.3) 0.8mg/dL (0.7-1.3) Estimated GFR (Cockcroft-Gault) 87.0 99.6 Glucose Level 123mg/dL (70-99) 142mg/dL (70-99) Calcium Level 9.7mg/dL (8.5-10.1) 8.7mg/dL (8.5-10.1) Total Bilirubin 0.4mg/dL (0.2-1.0) Direct Bilirubin 0.1mg/dL (0.0-0.2) Aspartate Amino Transf (AST/SGOT) 22U/L (15-37) Alanine Aminotransferase (ALT/SGPT) 21U/L (16-63) Alkaline Phosphatase 108U/L (46-116) Troponin I Quantitative < 0.017ng/mL (0.000-0.055) < 0.017ng/mL (0.000-0.055) YP-Nvw-M-Type Natriuretic Peptide 219pg/mL (0-124) Total Protein 9.4g/dL (6.4-8.2) Albumin 3.4g/dL (3.4-5.0) Lipase 44U/L (73-393) O2 Saturation 98% (92-99) Arterial Blood pH 7.41 (7.35-7.45) Arterial Blood pCO2 at Patient Temp 37mmHg (35-46) Arterial Blood pO2 at Patient Temp 114mmHg (75-108) Arterial Blood HCO3 23mmol/L (21-28) Arterial Blood Base Excess -1mmol/L (-3-3) FiO2 40 Lactic Acid Level 0.8mmol/L (0.4-2.0) ECHOCARDIOGRAM ECHOCARDIOGRAM <Conclusion> The left ventricle is normal size. The left ventricular systolic function is normal and the ejection fraction is within normal range. The Ejection Fraction is 55-60%. There is borderline hypokinesis in the septal wall. There is no significant aortic valvular stenosis. Doppler and Color Flow revealed no significant aortic regurgitation. Doppler and Color Flow revealed no mitral valve regurgitation noted. Doppler and Color Flow revealed trace tricuspid regurgitation. The PA pressure was estimated at 29 mmHg. DATE: 11/15/15 1612 HEART CATH HEART CATH Findings. LV: 126/6, AO: 122/70 Coronaries. LEFT MAIN. THE LEFT MAIN WAS A SHORT VESSEL WITH NO LESIONS LAD. THE LAD WAS A MODERATE SIZE VESSEL WITH A PROXIMAL 75% THROMBOTIC LESION. LCX. THE LCX WAS A MODERATE SIZE VESSEL WITH NO LESIONS. RCA THE RCA WAS A MODERATE SIZE VESSEL WITH NO LESIONS. LV GRAM THE LEFT VENTRICLE SHOWED NORMAL SYSTOLIC FUNCTION. <Conclusion> SEVERE SINGLE VESSEL CAD NORMAL LV SYSTOLIC FUNCTION. SUCCESSFUL BARE METAL STENT PLACED TO THE LAD LESION. DATE: 11/16/15 1741 ASSESSMENT/PLAN ASSESSMENT/PLAN 1. Chest Pain troponin series normal- AMI ruled out will obtain echo to asses LV function/presence of WMA given risk factors will proceed with MPI in am to r/o ischemia ASA, check lipids 2. Acute on chronic respiratory failure with pulmonary fibrosis likely URI; green sputum improved; now on NC 3. CAD s/p PCI/BMS to LAD 11/20 stable. CP free presently continue secondary prevention no BB with wheezing 4. Hypertension low-normotension monitor trends 5. Hyperlipidemia check lipids statin therapy 6. Marked Leukocytosis, POA per PCP Problems: LEONIE SHEARER APRN Jul 04, 2016 09:07
[2016-07-04] MEDS: ASPIRIN 325 MG TABLET PO SCH (09:51)
[2016-07-04] MEDS: DUREZOL 0.05% EYE DROPS OS SCH ×3 (09:52→20:53)
[2016-07-04] MEDS: NAPROXEN 250 MG TABLET PO SCH ×2 (09:52→16:28)
[2016-07-04] MEDS: ESBRIET 267 MG PO SCH ×3 (09:52→20:53)
--- NOTE | 2016-07-04 10:03 | HP ---
ADMIT DATE: 07/04/2016 CHIEF COMPLAINT: Shortness of breath. HISTORY OF PRESENT ILLNESS: The patient is a 56-year-old male with a history of chronic respiratory failure due to the idiopathic pulmonary fibrosis. He presented to the Emergency Room with the above complaint. The patient reported a several-day history of increasing cough and shortness of air. He was coughing up some thick, discolored sputum. He was wearing his oxygen as usual and doing his nebulized breathing treatments, but his symptoms continued to worsen. Initial evaluation in the Emergency Room showed the patient to be in moderate respiratory distress. He was placed on BiPAP and admitted for further treatment. PAST MEDICAL HISTORY: Idiopathic pulmonary fibrosis, hyperlipidemia, chronic depression and anxiety, GERD, osteoarthritis of the spine. PAST SURGICAL HISTORY: Cardiac stents x 2, most recently in 11/2015 and cataract removal in 06/2016. ALLERGIES: The patient has no known drug allergies. HOME MEDICATIONS: Albuterol nebulized treatments p.r.n., alprazolam 0.5 mg q. 8 hours p.r.n., aspirin 325 mg daily, atorvastatin 20 mg daily, Flexeril 10 mg t.i.d., Durezol eyedrops, naproxen 375 mg b.i.d., pantoprazole 40 mg daily, Esbriet 267 mg capsule 3 capsules t.i.d. and sertraline 100 mg daily. FAMILY HISTORY: Noncontributory. SOCIAL HISTORY: The patient is . He is disabled. He has a long smoking history, but quit smoking cigarettes years ago. He drinks alcohol occasionally and smokes marijuana occasionally. REVIEW OF SYSTEMS: The patient denies fever or chills. He admits to some intermittent chest pain recently, it was most severe last evening when he was having difficulty breathing. However, he has also experienced some mild chest pain at other times recently. He has not seen Cardiology since his stents were placed last summer. The patient denies abdominal pain, nausea or vomiting. His heartburn is fairly well controlled with the pantoprazole daily. His chronic anxiety and depression have been fairly well controlled with his usual medications. He recently had cataract removal by Dr. Varner. PHYSICAL EXAMINATION: GENERAL: The patient is alert and oriented x 3, resting comfortably in bed, in no acute distress. HEENT: PERRL, EOMI, sclerae clear. Oropharynx: Mucous membranes moist. NECK: Supple, without lymphadenopathy. CHEST: Dry crackles throughout with mild expiratory wheezes. CARDIOVASCULAR: Regular rhythm without murmur. ABDOMEN: Soft, nontender, normoactive bowel sounds are present. EXTREMITIES: Without edema. ASSESSMENT AND PLAN: 1. Qvfdo-il-ulorrwd respiratory failure with pulmonary fibrosis. The patient required BiPAP for a short time last night, he is now breathing comfortably at rest on oxygen per nasal cannula. Chest x-ray at admission was without acute infiltrate. A consult with Dr. Webber is pending. We will continue oxygen and nebulized breathing treatments. The patient did receive one large dose of Solu-Medrol in the Emergency Room and one dose of Rocephin. 2. Chest pain with history of coronary artery disease. The patient is long overdue for followup with Cardiology. He denies any chest pain at this time. Troponin is within normal limits. A consult with cardiology is pending. We will continue the patient on aspirin and statin. 3. Chronic anxiety and depression. Continue home medications. 4. Leukocytosis. The patient's WBCs were markedly elevated at admission at 36.5. He does not have a history of this. There were 63 segs and 24 bands present with 8 lymphs. This level is basically unchanged this morning at 37.0. His hemoglobin has dropped slightly to 8.8. We will follow his lab and consider further evaluation of this, if this elevation persists. He does not appear to be on any medication that would cause chronic leukocytosis. 5. Hyperglycemia. The patient's blood sugar was mildly elevated at admission and A1c is pending. JOHN DOWD MD DR: PAULINO/sundar JOB#: [id number] / [id number] LIZETH
[2016-07-04] MEDS: CYCLOBENZAPRINE 10 MG TABLET. PO SCH ×2 (15:29→20:54)
[2016-07-04] MEDS: ATORVASTATIN CALCIUM 20 MG TABLET PO SCH (20:54)
[2016-07-04] MEDS: ALPRAZOLAM 0.5 MG TABLET. PO PRN (21:34)
[2016-07-04] MEDS ORDERED: HYDROCODONE/APAP 5/325MG TABLET. PO ONE (22:00)
[2016-07-04] MEDS ORDERED: HYDROCODONE/APAP 5/325MG TABLET. PO PRN (22:30)
[2016-07-05 03:00] VITALS: BP 111/73
--- NOTE | 2016-07-05 03:34 | CONS ---
DATE OF CONSULTATION: 07/04/2016 ATTENDING PHYSICIAN: Radha Jeff M.D. REASON FOR CONSULTATION: The patient is seen in pulmonary consultation at the request of Dr. Jeff for acute respiratory failure requiring noninvasive ventilation. HISTORY OF PRESENT ILLNESS: The patient is a 56-year-old well known to me with end-stage pulmonary fibrosis on oxygen supplementation at home. He was also on Esbriet, presented with increasing shortness of breath over the last several days. No fever, chills, no night sweats, no productive cough. PAST MEDICAL HISTORY: Pulmonary fibrosis, previous pneumonia, hypertension, myocardial infarction and anxiety. PAST SURGICAL HISTORY: Tonsillectomy, cardiac stenting. SOCIAL HISTORY: He occasionally uses marijuana. REVIEW OF SYSTEMS: As indicated above, otherwise, a 10-point system was reviewed and negative. CURRENT MEDICATION: List was reviewed. Please see the MRAD. PHYSICAL EXAMINATION: VITAL SIGNS: Stable. O2 saturation was greater than 92%. He was off of BiPAP. HEENT: Eyes, the sclerae were nonicteric. NECK: Jugular venous distention was not elevated. No lymphadenopathy. CHEST: Full expansion. LUNGS: Usual Velcro type rales, no wheezes. CARDIOVASCULAR: Regular rate and rhythm with S1, S2, no S3. ABDOMEN: Soft, nontender, nondistended. EXTREMITIES: No clubbing, cyanosis or edema. LABORATORY DATA: White count was elevated. Hemoglobin and hematocrit were noted. Arterial blood gas was pH of 7.41, pCO2 of 37, pO2 of 114. Chest x-ray was reviewed, no acute infiltrates, chronic changes. IMPRESSION: 1. [id number] hypoxemic respiratory failure secondary to underlying pulmonary fibrosis and acute nonspecific bronchitis. 2. Acute nonspecific bronchitis. 3. Severe anxiety. 4. Coronary artery disease with previous coronary artery stenting. PLAN: We will continue current medical regimen and p.r.n. BiPAP. Continue antibiotics, continue nebulized treatment. I do appreciate the privilege in sharing in the patient's care. RAMYA THURMAN MD DR: SHON/sundar JOB#: [id number] / [id number]
[2016-07-05 05:33] LABS: HEMATOCRIT 28.1 % (39.0-53.0); HEMOGLOBIN 8.5 g/dL (13.0-17.5); RED BLOOD COUNT 4.02 x10^6/uL (4.30-5.70); RED CELL DISTRIBUTION WIDTH 21.7 % (11.5-14.5); WHITE BLOOD COUNT 28.6 x10^3/uL (4.0-11.0)
[2016-07-05 05:51] LABS: CALCIUM 8.5 mg/dL (8.5-10.1); CREATININE 0.7 mg/dL (0.7-1.3); GFR 116.2; POTASSIUM 3.9 mmol/L (3.5-5.1)
[2016-07-05 05:59] LABS: CHOLESTEROL/HDL RATIO 2.9
[2016-07-05 07:00] VITALS: BP 115/80
[2016-07-05] MEDS: IPRATRPIUM/ALBUTEROL 0.5/2.5MG 3 ML NEBU. NEB SCH (07:14)
[2016-07-05] MEDS: PANTOPRAZOLE 40 MG TABLET.DR. PO SCH (07:30)
--- NOTE | 2016-07-05 07:57 | PDOC ---
SUBJECTIVE Subjective Short of breath with any activity. Relatively well when he is just lying in bed. Not having any chest pain while laying in bed. Has been eating okay. Anxiety is better controlled with the medications. OBJECTIVE Vital Signs Vital Signs Date Time Temp Pulse Resp B/P Pulse Ox O2 Delivery O2 Flow Rate FiO2 07/05/16 07:17 96 Room Air 07/05/16 03:00 98.1 96 111/73 95 Nasal Cannula 2.0 98.1 07/04/16 20:00 98.1 107 106/67 97 Nasal Cannula 2.0 98.1 07/04/16 20:00 Nasal Cannula 2.0 07/04/16 18:10 Nasal Cannula 2.0 07/04/16 17:42 101 107/73 97 Nasal Cannula 2.0 07/04/16 16:20 Nasal Cannula 2.0 07/04/16 16:00 97.9 104 17 100/64 100 Nasal Cannula 2.0 97.9 07/04/16 12:00 98.0 106 18 102/65 100 Nasal Cannula 2.0 98.0 07/04/16 11:31 Nasal Cannula 2.0 07/04/16 10:00 104 17 108/63 100 Nasal Cannula 2.0 07/04/16 09:00 99 18 115/69 99 Nasal Cannula 2.0 07/04/16 08:02 100 Nasal Cannula 2.0 07/04/16 08:00 97.8 96 18 93/71 100 Nasal Cannula 2.0 97.8 07/04/16 08:00 Nasal Cannula 2.0 I & O Intake and Output 07/05/16 07:00 Intake Total 250 ml Output Total 450 ml Balance -200 ml Intake Oral 250 ml Output Urine Total 450 ml # Voids 3 PHYSICAL EXAM Physical Exam General: No acute distress. Mental status: Alert and oriented. Calm at present Chest: Crackles at the bilateral bases. Decreased air movement throughout. CV: Normal rate. Regular rhythm. No murmur. Abdomen: Normal bowel sounds. Soft. Not distended. No tenderness. No guarding. No rebound. Extremities: No lower extremity edema. ASSESSMENT/PLAN Assessment/Plan 1. Acute on chronic respiratory failure with pulmonary fibrosis - patient required Bipap for a short time, now needs O2 with activity but is relatively comfortable without O2 at rest. CXR without acute infiltrate. Continue per pulmonology. Continue O2 and nebs, patient received one large dose of Solumedrol in ER. 6 minute walk prior to discharge and see if he will qualify for oxygen if his stress test is negative 2. chest pain with history of CAD - patient received a stent last summer and has apparently had no follow up with Cardiology since then. He reports a history of some intermittent chest pains recently. Plan for stress test today. If negative and breathing is compensated he could go home this afternoon. Continue ASA and statin. 3. chronic anxiety and depression - continue home meds. 4. leukocytosis - patient's WBC's were markedly elevated at admission, even before receiving steroids. Wbc's are decreasing and hemoglobin is stable. Will follow lab and consider further evaluation if indicated as an outpatient since he strongly desires to go home today 5. hyperglycemia -A1c is normal, probably related to steroids. Patient denies history of DM. 6. Disposition: Patient strongly desires to leave today. We'll see what the stress test looks like. If that is negative and his breathing is doing well he could be discharged this afternoon. He already has oxygen and his other medications at home. Regarding his leukocytosis, that could be evaluated further as an outpatient. Problems: COMMENT Lab Laboratory Tests Test 07/04/16 09:27 07/05/16 05:00 Troponin I Quantitative < 0.017ng/mL (0.000-0.055) White Blood Count 28.6x10^3/uL (4.0-11.0) Red Blood Count 4.02x10^6/uL (4.30-5.70) Hemoglobin 8.5g/dL (13.0-17.5) Hematocrit 28.1% (39.0-53.0) Mean Corpuscular Volume 70fL (79-100) Mean Corpuscular Hemoglobin 21pg (25-35) Mean Corpuscular Hemoglobin Concent 30g/dL (31-37) Red Cell Distribution Width 21.7% (11.5-14.5) Platelet Count 378x10^3/uL (140-400) Sodium Level 141mmol/L (136-145) Potassium Level 3.9mmol/L (3.5-5.1) Chloride Level 103mmol/L (98-107) Carbon Dioxide Level 28mmol/L (21-32) Anion Gap 10 (6-14) Blood Urea Nitrogen 21mg/dL (8-26) Creatinine 0.7mg/dL (0.7-1.3) Estimated GFR (Cockcroft-Gault) 116.2 Glucose Level 96mg/dL (70-99) Calcium Level 8.5mg/dL (8.5-10.1) Triglycerides Level 41mg/dL (0-150) Cholesterol Level 90mg/dL (0-200) LDL Cholesterol, Calculated 51mg/dL (0-100) VLDL Cholesterol, Calculated 8mg/dL (0-40) HDL Cholesterol 31mg/dL (40-60) Cholesterol/HDL Ratio 2.9 JOHN DAMON MD Jul 05, 2016 07:57
--- NOTE | 2016-07-05 08:57 | PDOC ---
PULMONARY PROGRESS NOTES Subjective PT NOT MORE SOA Vitals Vital Signs Date Time Temp Pulse Resp B/P Pulse Ox O2 Delivery O2 Flow Rate FiO2 07/05/16 08:00 Room Air 07/05/16 07:17 96 07/05/16 07:00 97.4 103 20 115/80 97.4 07/05/16 03:00 2.0 General: Alert, No acute distress Lungs: Crackles Cardiovascular: S1, S2 Abdomen: Soft Neuro Exam: Alert Extremities: No Edema Skin: Warm Labs Laboratory Tests Test 07/03/16 21:19 07/03/16 22:30 07/03/16 23:30 07/04/16 03:35 White Blood Count 36.5x10^3/uL (4.0-11.0) 37.0x10^3/uL (4.0-11.0) Red Blood Count 4.78x10^6/uL (4.30-5.70) 4.24x10^6/uL (4.30-5.70) Hemoglobin 10.1g/dL (13.0-17.5) 8.8g/dL (13.0-17.5) Hematocrit 33.8% (39.0-53.0) 30.1% (39.0-53.0) Mean Corpuscular Volume 71fL (79-100) 71fL (79-100) Mean Corpuscular Hemoglobin 21pg (25-35) 21pg (25-35) Mean Corpuscular Hemoglobin Concent 30g/dL (31-37) 29g/dL (31-37) Red Cell Distribution Width 22.2% (11.5-14.5) 21.8% (11.5-14.5) Platelet Count 400x10^3/uL (140-400) 345x10^3/uL (140-400) Neutrophils (%) (Auto) 91% (31-73) 96% (31-73) Lymphocytes (%) (Auto) 4% (24-48) 3% (24-48) Monocytes (%) (Auto) 4% (0-9) 2% (0-9) Eosinophils (%) (Auto) 0% (0-3) 0% (0-3) Basophils (%) (Auto) 0% (0-3) 0% (0-3) Neutrophils # (Auto) 33.3x10^3uL (1.8-7.7) 35.3x10^3uL (1.8-7.7) Lymphocytes # (Auto) 1.5x10^3/uL (1.0-4.8) 1.0x10^3/uL (1.0-4.8) Monocytes # (Auto) 1.5x10^3/uL (0.0-1.1) 0.7x10^3/uL (0.0-1.1) Eosinophils # (Auto) 0.0x10^3/uL (0.0-0.7) 0.0x10^3/uL (0.0-0.7) Basophils # (Auto) 0.0x10^3/uL (0.0-0.2) 0.0x10^3/uL (0.0-0.2) Segmented Neutrophils % 63% (35-66) Band Neutrophils % 24% (0-9) Lymphocytes % 8% (24-48) Monocytes % 5% (0-10) Platelet Estimate Increased (ADEQUATE) Polychromasia Slight Hypochromasia Mod Anisocytosis Mod Microcytosis Mod Sodium Level 136mmol/L (136-145) 135mmol/L (136-145) Potassium Level 3.7mmol/L (3.5-5.1) 4.5mmol/L (3.5-5.1) Chloride Level 97mmol/L (98-107) 99mmol/L (98-107) Carbon Dioxide Level 27mmol/L (21-32) 27mmol/L (21-32) Anion Gap 12 (6-14) 9 (6-14) Blood Urea Nitrogen 15mg/dL (8-26) 19mg/dL (8-26) Creatinine 0.9mg/dL (0.7-1.3) 0.8mg/dL (0.7-1.3) Estimated GFR (Cockcroft-Gault) 87.0 99.6 Glucose Level 123mg/dL (70-99) 142mg/dL (70-99) Calcium Level 9.7mg/dL (8.5-10.1) 8.7mg/dL (8.5-10.1) Total Bilirubin 0.4mg/dL (0.2-1.0) Direct Bilirubin 0.1mg/dL (0.0-0.2) Aspartate Amino Transf (AST/SGOT) 22U/L (15-37) Alanine Aminotransferase (ALT/SGPT) 21U/L (16-63) Alkaline Phosphatase 108U/L (46-116) Troponin I Quantitative < 0.017ng/mL (0.000-0.055) < 0.017ng/mL (0.000-0.055) AX-Foo-W-Type Natriuretic Peptide 219pg/mL (0-124) Total Protein 9.4g/dL (6.4-8.2) Albumin 3.4g/dL (3.4-5.0) Lipase 44U/L (73-393) O2 Saturation 98% (92-99) Arterial Blood pH 7.41 (7.35-7.45) Arterial Blood pCO2 at Patient Temp 37mmHg (35-46) Arterial Blood pO2 at Patient Temp 114mmHg (75-108) Arterial Blood HCO3 23mmol/L (21-28) Arterial Blood Base Excess -1mmol/L (-3-3) FiO2 40 Nasal Screen MRSA (PCR) Positive (Negative) Lactic Acid Level 0.8mmol/L (0.4-2.0) Hemoglobin A1c 5.5% (4.8-5.6) Test 07/04/16 09:27 07/05/16 05:00 Troponin I Quantitative < 0.017ng/mL (0.000-0.055) White Blood Count 28.6x10^3/uL (4.0-11.0) Red Blood Count 4.02x10^6/uL (4.30-5.70) Hemoglobin 8.5g/dL (13.0-17.5) Hematocrit 28.1% (39.0-53.0) Mean Corpuscular Volume 70fL (79-100) Mean Corpuscular Hemoglobin 21pg (25-35) Mean Corpuscular Hemoglobin Concent 30g/dL (31-37) Red Cell Distribution Width 21.7% (11.5-14.5) Platelet Count 378x10^3/uL (140-400) Sodium Level 141mmol/L (136-145) Potassium Level 3.9mmol/L (3.5-5.1) Chloride Level 103mmol/L (98-107) Carbon Dioxide Level 28mmol/L (21-32) Anion Gap 10 (6-14) Blood Urea Nitrogen 21mg/dL (8-26) Creatinine 0.7mg/dL (0.7-1.3) Estimated GFR (Cockcroft-Gault) 116.2 Glucose Level 96mg/dL (70-99) Calcium Level 8.5mg/dL (8.5-10.1) Triglycerides Level 41mg/dL (0-150) Cholesterol Level 90mg/dL (0-200) LDL Cholesterol, Calculated 51mg/dL (0-100) VLDL Cholesterol, Calculated 8mg/dL (0-40) HDL Cholesterol 31mg/dL (40-60) Cholesterol/HDL Ratio 2.9 Laboratory Tests Test 07/04/16 09:27 07/05/16 05:00 Troponin I Quantitative < 0.017ng/mL (0.000-0.055) White Blood Count 28.6x10^3/uL (4.0-11.0) Red Blood Count 4.02x10^6/uL (4.30-5.70) Hemoglobin 8.5g/dL (13.0-17.5) Hematocrit 28.1% (39.0-53.0) Mean Corpuscular Volume 70fL (79-100) Mean Corpuscular Hemoglobin 21pg (25-35) Mean Corpuscular Hemoglobin Concent 30g/dL (31-37) Red Cell Distribution Width 21.7% (11.5-14.5) Platelet Count 378x10^3/uL (140-400) Sodium Level 141mmol/L (136-145) Potassium Level 3.9mmol/L (3.5-5.1) Chloride Level 103mmol/L (98-107) Carbon Dioxide Level 28mmol/L (21-32) Anion Gap 10 (6-14) Blood Urea Nitrogen 21mg/dL (8-26) Creatinine 0.7mg/dL (0.7-1.3) Estimated GFR (Cockcroft-Gault) 116.2 Glucose Level 96mg/dL (70-99) Calcium Level 8.5mg/dL (8.5-10.1) Triglycerides Level 41mg/dL (0-150) Cholesterol Level 90mg/dL (0-200) LDL Cholesterol, Calculated 51mg/dL (0-100) VLDL Cholesterol, Calculated 8mg/dL (0-40) HDL Cholesterol 31mg/dL (40-60) Cholesterol/HDL Ratio 2.9 Medications Active Scripts Medications Dose Route/Sig Days Date Category Zoloft (Sertraline Hcl) 100 Mg Tablet 1 Tab PO DAILY 07/04/16 Rx Duoneb 0.5-3(2.5) Mg/3 Ml (Albuterol/Ipratropium) 3 Ml Ampul.neb 3 Ml NEB QID 07/03/16 Reported Durezol (Difluprednate) 5 Ml Drops 5 Ml OP TID 07/03/16 Reported Pantoprazole Sodium 40 Mg Tablet.dr 40 Mg PO DAILY 06/18/16 Reported Cyclobenzaprine Hcl 10 Mg Tablet 1 Tab PO TID 01/08/16 Rx Naproxen 375 Mg Tablet 1 Tab PO BID 01/08/16 Rx Alprazolam 0.5 Mg Tablet 0.5 Mg PO Q8H PRN 12/29/15 Rx Esbriet (Pirfenidone) 267 Mg Capsule 3 Cap PO TID 12/28/15 Reported Proair Hfa Inhaler (Albuterol Sulfate) 8.5 Gm Hfa.aer.ad 1-2 Puff INH PRN Q6HRS PRN 11/17/15 Reported Lipitor (Atorvastatin Calcium) 20 Mg Tablet 1 Tab PO DAILY 11/17/15 Rx Aspirin 325 Mg Tablet 1 Tab PO DAILY 11/17/15 Rx Impression . IMPRESSION: 1. [id number] hypoxemic respiratory failure secondary to underlying pulmonary fibrosis and acute nonspecific bronchitis. 2. Acute nonspecific bronchitis. 3. Severe anxiety. 4. Coronary artery disease with previous coronary artery stenting. Plan . HOME IN AM PLAN: We will continue current medical regimen and p.r.n. BiPAP. Continue antibiotics, continue nebulized treatment. RAMYA THURMAN MD Jul 05, 2016 08:57
[2016-07-05] MEDS: CYCLOBENZAPRINE 10 MG TABLET. PO SCH ×3 (09:54→20:56)
[2016-07-05] MEDS: ESBRIET 267 MG PO SCH ×3 (09:56→20:56)
[2016-07-05] MEDS: NAPROXEN 250 MG TABLET PO SCH ×2 (09:56→17:20)
[2016-07-05] MEDS: ASPIRIN 325 MG TABLET PO SCH (09:56)
[2016-07-05] MEDS: DUREZOL 0.05% EYE DROPS OS SCH ×3 (09:57→20:56)
[2016-07-05 10:31] VITALS: BP 111/71
--- NOTE | 2016-07-05 11:13 | PDOC ---
CARDIO Progress Notes Date and Time Date of Service 07/05/16 Time of Evaluation 0930 Subjective Subjective: No Chest Pain, No Palpitations, No Dizziness, Other (mild SOA with activity ) Vitals Vitals Vital Signs Date Time Temp Pulse Resp B/P Pulse Ox O2 Delivery O2 Flow Rate FiO2 07/05/16 10:31 97.7 112 20 111/71 91 Room Air 97.7 07/05/16 03:00 2.0 Weight Weight [ ] Input and Output Intake and Output Intake and Output 07/05/16 07:00 Intake Total 250 ml Output Total 450 ml Balance -200 ml Intake Oral 250 ml Output Urine Total 450 ml # Voids 3 Laboratory Labs Laboratory Tests Test 07/05/16 05:00 White Blood Count 28.6x10^3/uL (4.0-11.0) Red Blood Count 4.02x10^6/uL (4.30-5.70) Hemoglobin 8.5g/dL (13.0-17.5) Hematocrit 28.1% (39.0-53.0) Mean Corpuscular Volume 70fL (79-100) Mean Corpuscular Hemoglobin 21pg (25-35) Mean Corpuscular Hemoglobin Concent 30g/dL (31-37) Red Cell Distribution Width 21.7% (11.5-14.5) Platelet Count 378x10^3/uL (140-400) Sodium Level 141mmol/L (136-145) Potassium Level 3.9mmol/L (3.5-5.1) Chloride Level 103mmol/L (98-107) Carbon Dioxide Level 28mmol/L (21-32) Anion Gap 10 (6-14) Blood Urea Nitrogen 21mg/dL (8-26) Creatinine 0.7mg/dL (0.7-1.3) Estimated GFR (Cockcroft-Gault) 116.2 Glucose Level 96mg/dL (70-99) Calcium Level 8.5mg/dL (8.5-10.1) Triglycerides Level 41mg/dL (0-150) Cholesterol Level 90mg/dL (0-200) LDL Cholesterol, Calculated 51mg/dL (0-100) VLDL Cholesterol, Calculated 8mg/dL (0-40) HDL Cholesterol 31mg/dL (40-60) Cholesterol/HDL Ratio 2.9 Microbiology Micro Microbiology 07/03/16 Blood Culture - Preliminary, Resulted NO GROWTH AFTER 1 DAY Physical Exam HEENT: Neck Supple W Full Motion Chest: Symmetric LUNGS: Clear to Auscultation, Other (diminished bases ) Heart: S1S2, RRR, other (tele: ST) Abdomen: Soft N/T Extremities: No Edema, No Calf Tenderness Neurology: alert, oriented, follow commands Assessment Assessment 1. Chest Pain troponin series normal- AMI ruled out echo underway today was unable to have MPI due to coffee early this morning. CP returned with ambulation; will proceed with MPI in am to r/o ischemia. NPO after MN 2. CAD s/p PCI/BMS to LAD 11/20 stable. continue secondary prevention no wheezing present; will add BB 3. Acute on chronic respiratory failure with pulmonary fibrosis likely URI; green sputum improved; now on NC per pulm 4. Hypertension controlled with meds 5. Hyperlipidemia LDL= 51 statin therapy 6. Marked Leukocytosis, POA afebrile sinus tachycardia per PCP LEONIE SHEARER APRN Jul 05, 2016 11:13
[2016-07-05] MEDS: ALPRAZOLAM 0.5 MG TABLET. PO PRN (11:40)
[2016-07-05] MEDS: METOPROLOL TART IMMED RELEASE 25 MG TABLET. PO SCH ×2 (13:46→21:07)
[2016-07-05 15:24] VITALS: BP 120/72
--- NOTE | 2016-07-05 16:24 | CARD ---
APPROVED REPORT EXAM: Two-dimensional and M-mode echocardiogram with Doppler and color Doppler. Other Information Quality : Good INDICATION Chest Pain 2D DIMENSIONS RVDd1.8 (2.9-3.5cm)Left Atrium(2D)2.0 (1.6-4.0cm) IVSd1.0 (0.7-1.1cm)Aortic Root(2D)2.7 (2.0-3.7cm) LVDd4.8 (3.9-5.9cm)LVOT Diameter2.1 (1.8-2.4cm) PWd1.0 (0.7-1.1cm)LVDs3.2 (2.5-4.0cm) FS (%) 32.6 %SV64.5 ml LVEF(%)61.0 (>50%) Aortic Valve AoV Peak Alberto.106.7cm/sAoV VTI16.3cm AO Peak GR.4.6mmHgLVOT Peak Alberto.96.6cm/s LVOT VTI 13.67cmAO Mean GR.3mmHg SOREN (VMAX)3.40uv9JJS (VTI)2.93cm2 Mitral Valve MV E Qtzektoq90.3cm/sMV A Fhetpcyn90.8cm/s E/A Ratio0.6 TDI E/Lateral E'5.2E/Medial E'6.1 Tricuspid Valve TR P. Bqptbaiq834pb/sRAP [id number] TR Peak Gr.59ywOpBDRX02ovAa Pulmonary Vein S1 Iwneajvz77.9cm/sD2 Axnxsvpb07.8cm/s PVa [id number] LEFT VENTRICLE The left ventricle is normal size. There is normal left ventricular wall thickness. The left ventricu lar systolic function is normal. The Ejection Fraction is 55-60%. There is normal LV segmental wall m otion. Transmitral Doppler flow pattern is Grade I-abnormal relaxation pattern. RIGHT VENTRICLE The right ventricle is normal size. The right ventricular systolic function is normal. ATRIA The left atrium size is normal. The right atrium size is normal. The interatrial septum is intact wit h no evidence for an atrial septal defect or patent foramen ovale as noted on 2-D or Doppler imaging. AORTIC VALVE The aortic valve is calcified but opens well. Doppler and Color Flow revealed no significant aortic r egurgitation. There is no significant aortic valvular stenosis. MITRAL VALVE The mitral valve is calcified but opens well. There is no evidence of mitral valve prolapse. There is no mitral valve stenosis. Doppler and Color-flow revealed trace mitral regurgitation. TRICUSPID VALVE The tricuspid valve is normal in structure and function. Doppler and Color Flow revealed trace tricus pid regurgitation. There is mild pulmonary hypertension. The PA pressure was estimated at 37 mmHg. Th ere is no tricuspid valve stenosis. PULMONIC VALVE The pulmonary valve is normal in structure and function. Doppler and Color Flow revealed trace pulmon ic valvular regurgitation. There is no pulmonic valvular stenosis. GREAT VESSELS The aortic root is normal in size. The ascending aorta is normal in size. The IVC is normal in size a nd collapses >50% with inspiration. PERICARDIAL EFFUSION There is no evidence of significant pericardial effusion. Critical Notification Critical Value: No <Conclusion> The left ventricular systolic function is normal. The Ejection Fraction is 55-60%. There is normal LV segmental wall motion. Transmitral Doppler flow pattern is Grade I-abnormal relaxation pattern. Trace mitral regurgitation. Trace tricuspid regurgitation. The PA pressure was estimated at 37 mmHg. There is no evidence of significant pericardial effusion.
[2016-07-05] MEDS ORDERED: LORAZEPAM 1 MG TABLET. PO PRN (18:15)
[2016-07-05] MEDS: LORAZEPAM 0.5 MG TABLET. PO PRN ×2 (18:23→18:28)
[2016-07-05 19:00] VITALS: BP 119/82
[2016-07-05] MEDS: ATORVASTATIN CALCIUM 20 MG TABLET PO SCH (20:56)
[2016-07-05 23:00] VITALS: BP 111/77
[2016-07-06 03:00] VITALS: BP 109/77
[2016-07-06] MEDS: IPRATRPIUM/ALBUTEROL 0.5/2.5MG 3 ML NEBU. NEB SCH ×3 (07:31→16:02)
[2016-07-06 08:05] VITALS: BP 114/84
[2016-07-06] MEDS: ASPIRIN 325 MG TABLET PO SCH (08:39)
[2016-07-06] MEDS: METOPROLOL TART IMMED RELEASE 25 MG TABLET. PO SCH (08:41)
[2016-07-06] MEDS ORDERED: LORAZEPAM 1 MG TABLET. ONE (09:11)
[2016-07-06] MEDS ORDERED: REGADENOSON 0.4 MG/5 ML DISP.SYRIN. IV ONE (10:00)
[2016-07-06 10:45] VITALS: BP 119/84
[2016-07-06] MEDS: CYCLOBENZAPRINE 10 MG TABLET. PO SCH (11:02)
[2016-07-06] MEDS: PANTOPRAZOLE 40 MG TABLET.DR. PO SCH (11:02)
[2016-07-06] MEDS: DUREZOL 0.05% EYE DROPS OS SCH ×2 (11:03→15:33)
[2016-07-06] MEDS: ESBRIET 267 MG PO SCH ×2 (11:03→15:33)
[2016-07-06] MEDS: NAPROXEN 250 MG TABLET PO SCH ×2 (11:06→17:00)
--- NOTE | 2016-07-06 12:13 | PDOC ---
PROGRESS NOTES Subjective Subjective Patient seen and examined Objective Objective Vital Signs Date Time Temp Pulse Resp B/P Pulse Ox O2 Delivery O2 Flow Rate FiO2 07/06/16 11:33 Room Air 07/06/16 08:41 101 114/84 07/06/16 08:30 2.0 07/06/16 08:05 97.8 18 95 97.8 Intake and Output 07/06/16 06:59 Intake Total 900 ml Balance 900 ml Intake Oral 900 ml # Voids 3 Physical Exam Abdomen: Normal bowel sounds Heart: Regular rate General: No acute distress Lungs: Clear to auscultation Assessment Assessment Problems Medical Problems: (1) Acute respiratory failure with hypoxia Status: Acute (2) COPD (chronic obstructive pulmonary disease) Status: Acute (3) Dyspnea Status: Acute (4) Pulmonary fibrosis Status: Acute Assessment 1. Chest Pain troponin series normal- AMI ruled out Feeling better today. MPI testing today. If no reversible ischemia patient may be discharged from a cardiac viewpoint. 2. CAD s/p PCI/BMS to LAD 11/20 stable. continue secondary prevention no wheezing present; will add BB 3. Acute on chronic respiratory failure with pulmonary fibrosis likely URI; green sputum improved; now on NC per pulm 4. Hypertension controlled with meds 5. Hyperlipidemia LDL= 51 statin therapy Comment Review of Relevant I have reviewed the following items claribel (where applicable) has been applied. Labs Laboratory Tests Test 07/05/16 05:00 White Blood Count 28.6x10^3/uL (4.0-11.0) Red Blood Count 4.02x10^6/uL (4.30-5.70) Hemoglobin 8.5g/dL (13.0-17.5) Hematocrit 28.1% (39.0-53.0) Mean Corpuscular Volume 70fL (79-100) Mean Corpuscular Hemoglobin 21pg (25-35) Mean Corpuscular Hemoglobin Concent 30g/dL (31-37) Red Cell Distribution Width 21.7% (11.5-14.5) Platelet Count 378x10^3/uL (140-400) Sodium Level 141mmol/L (136-145) Potassium Level 3.9mmol/L (3.5-5.1) Chloride Level 103mmol/L (98-107) Carbon Dioxide Level 28mmol/L (21-32) Anion Gap 10 (6-14) Blood Urea Nitrogen 21mg/dL (8-26) Creatinine 0.7mg/dL (0.7-1.3) Estimated GFR (Cockcroft-Gault) 116.2 Glucose Level 96mg/dL (70-99) Calcium Level 8.5mg/dL (8.5-10.1) Triglycerides Level 41mg/dL (0-150) Cholesterol Level 90mg/dL (0-200) LDL Cholesterol, Calculated 51mg/dL (0-100) VLDL Cholesterol, Calculated 8mg/dL (0-40) HDL Cholesterol 31mg/dL (40-60) Cholesterol/HDL Ratio 2.9 Microbiology 07/03/16 Blood Culture - Preliminary, Resulted NO GROWTH AFTER 2 DAYS Medications Current Medications Albuterol/ Ipratropium (Duoneb) 3 ml 1X ONCE NEB Last administered on 22:22; Start 07/03/16 at 21:30; Stop 07/03/16 at 21:31; Status DC Methylprednisolone Sodium Succinate (Solu-Medrol 125mg Vial) 125 mg 1X ONCE IV Last administered on 07/03/16 21:26; Start 07/03/16 at 21:30; Stop 07/03/16 at 21:31; Status DC Ondansetron HCl (Zofran) 4 mg PRN Q8HRS PRN IV NAUSEA/VOMITING; Start 07/03/16 at 21:30; Stop 07/04/16 at 21:29; Status DC Morphine Sulfate 2 mg PRN Q2HR PRN IV SEVERE PAIN Last administered on 21:59; Start 07/03/16 at 21:30; Stop 07/04/16 at 21:29; Status DC Albuterol/ Ipratropium 3 ml 3 ml RTQID NEB Last administered on 07/05/16 07:14 ; Start 07/04/16 at 08:00; Stop 07/05/16 at 07:59; Status DC Ceftriaxone Sodium (Rocephin 1gm Ivpb For Omni) 50 ml @ 100 mls/hr 1X ONCE IV Last administered on 07/04/16 00:31; Start 07/03/16 at 23:30; Stop 07/03/16 at 23:59; Status DC Alprazolam (Xanax) 0.5 mg PRN Q8HRS PRN PO ANXIETY / AGITATION Last administered on 07/05/16 11:40; Start 07/04/16 at 08:30; Stop 07/05/16 at 18:14 ; Status DC Aspirin (Nelson Aspirin) 325 mg DAILYWBKFT PO Last administered on 07/06/16 08: 39; Start 07/04/16 at 09:00 Atorvastatin Calcium (Lipitor) 20 mg QHS PO Last administered on 07/05/16 20: 56; Start 07/04/16 at 21:00 Cyclobenzaprine HCl (Flexeril) 10 mg TID PO ; Start 07/04/16 at 09:00; Stop at 10:52; Status DC Pantoprazole Sodium (Protonix) 40 mg DAILYAC PO Last administered on 07/04/16 09:52; Start 07/04/16 at 09:00; Stop 07/05/16 at 05:37; Status DC Naproxen (Naprosyn) 375 mg BIDWMEALS PO Last administered on 07/06/16 11:06; Start 07/04/16 at 09:00 Non-Formulary Medication 1 ea TID OS Last administered on 07/06/16 11:03; Start 07/04/16 at 09:30 Non-Formulary Medication 3 ea TIDWMEALS PO Last administered on 07/04/16 12:47 ; Start 07/04/16 at 09:30; Stop 07/04/16 at 16:32; Status DC Cyclobenzaprine HCl (Flexeril) 10 mg TID PO Last administered on 07/06/16 11:02 ; Start 07/04/16 at 14:00 Non-Formulary Medication 3 ea TID PO Last administered on 07/06/16 11:03; Start 07/04/16 at 21:00 Acetaminophen/ Hydrocodone Bitart (Lortab 5/325) 1 tab 1X ONCE PO ; Start 07/04 at 22:00; Stop 07/04/16 at 22:01; Status Cancel Acetaminophen/ Hydrocodone Bitart (Lortab 5/325) 1 tab PRN 1X PRN PO SEVERE PAIN; Start 07/04/16 at 22:30 Pantoprazole Sodium (Protonix) 40 mg DAILYAC PO Last administered on 07/06/16 11:02; Start 07/05/16 at 05:37 Metoprolol Tartrate (Lopressor) 12.5 mg BID PO Last administered on 07/06/16 08 :41; Start 07/05/16 at 13:30 Lorazepam (Ativan) 0.5 mg PRN Q6HRS PRN PO ANXIETY / AGITATION Last administered on 07/05/16 18:28; Start 07/05/16 at 18:15 Lorazepam (Ativan) 1 mg PRN Q6HRS PRN PO ANXIETY / AGITATION Last administered on 07/06/16 09:13; Start 07/05/16 at 18:15 Albuterol/ Ipratropium (Duoneb) 3 ml RTQID NEB Last administered on 07/06/16 11 :29; Start 07/06/16 at 08:00 Lorazepam (Ativan) 1 mg STK-MED ONCE .ROUTE ; Start 07/06/16 at 09:11; Stop at 09:12; Status DC Regadenoson (Lexiscan) 0.4 mg 1X ONCE IV ; Start 07/06/16 at 10:00; Stop at 10:03; Status DC Active Scripts Active Zoloft (Sertraline Hcl) 100 Mg Tablet 1 Tab PO DAILY Cyclobenzaprine Hcl 10 Mg Tablet 1 Tab PO TID Naproxen 375 Mg Tablet 1 Tab PO BID Alprazolam 0.5 Mg Tablet 0.5 Mg PO Q8H PRN Lipitor (Atorvastatin Calcium) 20 Mg Tablet 1 Tab PO DAILY Aspirin 325 Mg Tablet 1 Tab PO DAILY Reported Duoneb 0.5-3(2.5) Mg/3 Ml (Albuterol/Ipratropium) 3 Ml Ampul.neb 3 Ml NEB QID Durezol (Difluprednate) 5 Ml Drops 5 Ml OP TID Pantoprazole Sodium 40 Mg Tablet.dr 40 Mg PO DAILY Esbriet (Pirfenidone) 267 Mg Capsule 3 Cap PO TID Proair Hfa Inhaler (Albuterol Sulfate) 8.5 Gm Hfa.aer.ad 1-2 Puff INH PRN Q6HRS PRN Vitals/I & O Vital Sign - Last 24 Hours 07/05/16 07/05/16 07/05/16 07/05/16 13:46 15:24 19:00 20:00 Temp 97.6 98.0 97.6 98.0 Pulse 71 107 95 Resp 20 18 B/P 111/71 120/72 119/82 Pulse Ox 92 96 O2 Delivery Room Air Room Air Room Air 07/05/16 07/05/16 07/06/16 07/06/16 21:07 23:00 03:00 07:32 Temp 97.8 97.5 97.8 97.5 Pulse 98 91 93 Resp 18 20 B/P 119/82 111/77 109/77 Pulse Ox 98 100 92 O2 Delivery Room Air Room Air Room Air 07/06/16 07/06/16 07/06/16 07/06/16 08:05 08:30 08:41 11:33 Temp 97.8 97.8 Pulse 101 101 Resp 18 B/P 114/84 114/84 Pulse Ox 95 O2 Delivery Nasal Cannula Nasal Cannula Room Air O2 Flow Rate 2.0 2.0 Intake and Output 07/05/16 07/05/16 07/06/16 14:59 22:59 06:59 Intake Total 600 ml 300 ml Balance 600 ml 300 ml NEREYDA BUSTILLO MD Jul 06, 2016 12:13
--- NOTE | 2016-07-06 12:21 | PDOC ---
SUBJECTIVE Subjective Recurrence of chest pain when he tried to ambulate yesterday for the 6 minute walk test. Has done both of his components of the stress test this morning and awaiting results. He is using his oxygen right now and his breathing is okay. No significant cough. No chest rest. He's eating okay. OBJECTIVE Vital Signs Vital Signs Date Time Temp Pulse Resp B/P Pulse Ox O2 Delivery O2 Flow Rate FiO2 07/06/16 11:33 Room Air 07/06/16 08:41 101 114/84 07/06/16 08:30 Nasal Cannula 2.0 07/06/16 08:05 97.8 101 18 114/84 95 Nasal Cannula 2.0 97.8 07/06/16 07:32 92 Room Air 07/06/16 03:00 97.5 93 20 109/77 100 Room Air 97.5 07/05/16 23:00 97.8 91 18 111/77 98 Room Air 97.8 07/05/16 21:07 98 119/82 07/05/16 20:00 Room Air 07/05/16 19:00 98.0 95 18 119/82 96 Room Air 98.0 07/05/16 15:24 97.6 107 20 120/72 92 Room Air 97.6 07/05/16 13:46 71 111/71 I & O Intake and Output 07/06/16 07:00 Intake Total 900 ml Balance 900 ml Intake Oral 900 ml # Voids 3 PHYSICAL EXAM Physical Exam General: No acute distress. Nasal cannula oxygen on but he tends to breathe through his mouth still. Mental status: Alert and oriented. Calm at present Chest: Crackles bilaterally more at the lower lungs but extending in the mid lungs.. Decreased air movement throughout. CV: Normal rate. Regular rhythm. No murmur. Abdomen: Normal bowel sounds. Soft. Not distended. No tenderness. No guarding. No rebound. Extremities: No lower extremity edema. ASSESSMENT/PLAN Assessment/Plan 1. Acute on chronic respiratory failure with pulmonary fibrosis - patient required Bipap for a short time, now needs O2 with activity but is relatively comfortable without O2 at rest. CXR without acute infiltrate. Continue per pulmonology. Continue O2 and nebs, patient received one large dose of Solumedrol in ER. Unable to tolerate a 6 minute walk test. 2. chest pain with history of CAD - patient received a stent last summer and has apparently had no follow up with Cardiology since then. He reports a history of some intermittent chest pains recently. Await stress test results today.. If negative and breathing is compensated he could go home this afternoon. Continue ASA and statin. 3. chronic anxiety and depression - continue home meds. 4. leukocytosis - patient's WBC's were markedly elevated at admission, even before receiving steroids. Wbc's are decreasing and hemoglobin is stable. Will follow lab and consider further evaluation if indicated as an outpatient since he strongly desires to go home 5. hyperglycemia -A1c is normal, probably related to steroids. Patient denies history of DM. 6. Disposition: We'll see what the stress test looks like. If that is negative and his breathing is doing well he could be discharged this afternoon. He already has oxygen and his other medications at home. Regarding his leukocytosis , that could be evaluated further as an outpatient. Await cardiology recommendations. Problems: JOHN DAMON MD Jul 06, 2016 12:21
--- NOTE | 2016-07-06 13:08 | RAD ---
APPROVED REPORT Test Type: Pharmacological Stress Nurse/Tech: Gabnio Moon RN Test Indications: chest pain Cardiac History: see ehr Medications: see ehr Medical History: see ehr Resting ECG: SR Resting Heart Rate: 94 bpm Resting Blood Pressure: 120/71mmHg Pretest Chest Pain: None Nurse/Tech Notes Lungs CTA, S1, S2 Consent: The procedure was explained to the patient in lay terms. Informed consent was witnessed. Moustapha eout was entered into [employer]. History and Stress Test performed by Roberto CalleNJamison Pharm. Details Pharmacologic stress testing was performed using 0.4mg per 5ml of regadenoson given intravenously ove r 7-10 seconds. Stress Symptoms No chest pain or symptoms. POST EXERCISE Reason for Termination: Infusion complete Max HR: 108 bpm Max Blood Pressure: 118/51mmHg Blood Pressure response to exercise: Normal blood pressure response during stress. Chest Pain: No. Arrhythmia: No. ST Change: No. INTERPRETATION Stress EKG Conclusion: The resting EKG shows a sinus rhythm with nonspecific ST-T wave changes. The stress EKG shows no significant changes from baseline. No EKG evidence of stress induced ischemia. Imaging Protocol IMAGE PROTOCOL: Rest Tc-99m/stress Tc-99m 1 day Rest: Stress: Viability: Radiopharm.Tc99m YtonnasozKl82b Sestamibi Dose11.9mCi 37.2mCi Duration 15min. 10min. Img Date 07/06/2016 07/06/2016 Inj-Img Opjm79khf. 60min. Rest Admin Site:IV - Left AntecubitalAdministrator:WINSOME Farias Stress Admin Site: IV - Right AntecubitalAdministrator: WINSOME Farias STRESS DATA End Diast. Vol.97.0mlAv. Heart Xeqk783.0bpm End Syst. Vol.41.0mlCO Index BSA0.0L/min Myocardial Ceul719.0gEject. Xchwqiyg10.0% Stress Rates Pk. Fill Rate2.61EDV/secLVtime Pk. Fill 162.72msec Pk. Empty Rate3.81ESV/secLVtime Pk. Xlqzb956.77msec 04/09 Pk. Fill1.70EDV/sec Stress Scores Regional WT1.00Summed WT17.00 Regional WM0.00Summed WM12.00 LV Perfusion The rest scans show a mild apical defect. The rest scans show a mild distal inferior and apical defect. Nuclear scans suggest a previous small apical infarct but no evidence of significant reversible ische ezequiel. Wall Motion Normal left ventricular systolic function with an ejection fraction of 58%. LV Perf. Quant 17 Seg. SSS1.00 17 Seg. SRS3.00 17 Seg. SDS1.00 Stress Defect Extent (% LAD)0.00Rest Defect Extent (% LAD)14.40Rev. Defect Extent (% LAD)0.00 Stress Defect Extent (% LCX) 7.50Rest Defect Extent (% LCX)5.00Rev. Defect Extent (% LCX)0.00 Stress Defect Extent (% RCA)0.00Rest Defect Extent (% RCA)0.00Rev. Defect Extent (% RCA)0.00 Stress Defect Extent (% CASSIUS)3.70Rest Defect Extent (% CASSIUS)6.30Rev. Defect Extent (% CASSIUS)0.00 Conclusion 1. No EKG evidence of stress-induced ischemia. 2. Nuclear imaging shows no reversible ischemia. 3. Nuclear imaging shows a possible previous small apical infarct. 4. Normal left ventricular systolic function with an ejection fraction of 58%. 5. Low to moderately low risk Lexiscan nuclear stress test.
[2016-07-06] MEDS ORDERED: LORAZEPAM 0.5 MG TABLET. PO PRN (13:30)
[2016-07-06] MEDS ORDERED: LORAZEPAM 1 MG TABLET. PO PRN (13:30)
[2016-07-06] MEDS ORDERED: CYCLOBENZAPRINE 10 MG TABLET. PO SCH (14:00)
[2016-07-06 15:15] VITALS: BP 130/83
== END 2016-07-06 18:23 | disposition home or self-care (01) | DRG 205 ==
LOC: ER 21:13 → 1 WEST ICU 21:43 → 5 NORTH 07-04 17:28
PROVIDERS: ADMIT Family Medicine; ATTEND Family Medicine
DX: M94.0 Chondrocostal junction syndrome [Tietze] (principal); J96.21 Acute and chronic respiratory failure with hypoxia; J84.112 Idiopathic pulmonary fibrosis; E78.5 Hyperlipidemia, unspecified; F12.90 Cannabis use, unspecified, uncomplicated; F32.9 Major depressive disorder, single episode, unspecified; F41.9 Anxiety disorder, unspecified; I10 Essential (primary) hypertension; I25.10 Atherosclerotic heart disease of native coronary artery without angina pectoris; J44.9 Chronic obstructive pulmonary disease, unspecified; K21.9 Gastro-esophageal reflux disease without esophagitis; T38.0X5A Adverse effect of glucocorticoids and synthetic analogues, initial encounter; Z82.49 Family history of ischemic heart disease and other diseases of the circulatory system; I25.2 Old myocardial infarction; Z87.891 Personal history of nicotine dependence; Z95.5 Presence of coronary angioplasty implant and graft; Z87.01 Personal history of pneumonia (recurrent); Z98.890 Other specified postprocedural states
CPT/HCPCS: 36415; 36600; 71010; 78452; 80048; 80061; 80076; 82805; 83036; 83605; 83690; 83880; 84484; 85007; 85027; 87040; 87641; 93005; 93017; 93306; 94250; 94620; 94640; 94660; 94760; 96374; 96375; 96376; A9500; J0690; J2270; J2785; J2930; J7620; 99285-25

== ENCOUNTER 2016-07-12 10:48 | Emergency (ER) | payer OTHER ==
[~2016-07-12] VITALS: Ht 172.7 cm; Wt 63.5 kg
[~2016-07-12 10:48] MED LIST changes: +DIFL5DRO2 OP; +IPRA3AMP NEB
[2016-07-12 11:14] LABS: BASO # 0.1 x10^3/uL (0.0-0.2); BASO % 0 % (0-3); EOS % 0 % (0-3); HEMATOCRIT 29.9 % (39.0-53.0); HEMOGLOBIN 8.9 g/dL (13.0-17.5); LYMPH # 1.3 x10^3/uL (1.0-4.8); LYMPH % 4 % (24-48); MEAN CORPUSCULAR HEMOGLOBIN 21 pg (25-35); MEAN CORPUSCULAR HGB CONC 30 g/dL (31-37); MEAN CORPUSCULAR VOLUME 71 fL (79-100); MONO % 4 % (0-9); NEUT % 92 % (31-73); PLATELET COUNT 376 x10^3/uL (140-400); RED BLOOD COUNT 4.21 x10^6/uL (4.30-5.70); WHITE BLOOD COUNT 36.7 x10^3/uL (4.0-11.0)
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
[2016-07-12] MEDS ORDERED: 0.9 % SODIUM CHLORIDE 10 ML DISP.SYRIN. IV ONE (11:15)
[2016-07-12] MEDS ORDERED: IV NORMAL SALINE 500ML BAG 500 ML IV ONE (11:15)
[2016-07-12] MEDS ORDERED: IPRATROPIUM BROMIDE 0.5 MG/2.5 ML NEBU. NEB ONE (11:15)
--- NOTE | 2016-07-12 11:21 | RAD ---
Portable chest, 07/12/2016: History: Shortness of breath Comparison is made to a study from 07/03/2016. The heart size is normal. There is moderate scarring over the pulmonary apices. There are moderate pulmonary opacities which are predominantly interstitial in nature with dominant involvement of the lung bases. There are underlying lucencies compatible with bronchiectasis and/or honeycombing. These are unchanged and suggest a chronic fibrosing process. No new pulmonary abnormality is seen. There is no evidence of pleural fluid. IMPRESSION: Unchanged extensive bilateral pulmonary opacities compatible with severe fibrosis.
[2016-07-12 11:26] LABS: CALCIUM 8.7 mg/dL (8.5-10.1); CREATININE 0.8 mg/dL (0.7-1.3); GFR 99.6; POTASSIUM 3.8 mmol/L (3.5-5.1)
--- NOTE | 2016-07-12 11:27 | EKG ---
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
[2016-07-12] MEDS ORDERED: methylPREDNISolone SOD SUCC PF 125 MG/2 ML VIAL. IV ONE (11:30)
[2016-07-12 11:34] LABS: ALBUMIN 2.6 g/dL (3.4-5.0); ALBUMIN/GLOBULIN RATIO 0.5 (1.0-1.7); TOTAL BILIRUBIN 0.6 mg/dL (0.2-1.0); TOTAL PROTEIN 7.7 g/dL (6.4-8.2)
[2016-07-12 11:42] LABS: CREATINE KINASE 41 U/L (39-308)
[2016-07-12] MEDS ORDERED: ASPIRIN 325 MG TABLET PO ONE (12:30)
[2016-07-12] MEDS ORDERED: FENTANYL PF 100 MCG/2 ML VIAL. IV ONE (12:30)
[2016-07-12 13:15] LABS: % EOS 1 % (0-5); PLT ESTIMATE ADEQUATE (ADEQUATE)
[2016-07-12 13:16] LABS: BASE EXCESS COOX 2 mmol/L (-3-3); CARBON MONOXIDE 0.3 % (0.0-1.9); HCO3 COOX 27 mmol/L (21-28); METHEMOGLOBIN 0.5 % (0.0-1.9); OXYHEMOGLOBIN 93.9 %; PCO2 COOX 45 mmHg (35-46); PO2 COOX 82 mmHg (75-108); SAT O2 COOX 95 % (92-99); TOTAL HEMOGLOBIN 9.6 g/dL
[2016-07-12] MEDS ORDERED: ONDANSETRON PF 4 MG/2 ML VIAL. IV PRN (13:30)
[2016-07-12] MEDS ORDERED: ACETAMINOPHEN 325 MG TABLET. PO PRN (13:30)
--- NOTE | 2016-07-12 13:56 | PHYS DOC ---
Past Medical History Past Medical History: Anxiety, CAD, Hypertension, [place], Pneumonia, Seizure Additional Past Medical Histor: pulmonary fibrosis Past Surgical History: Tonsillectomy Additional Past Surgical Histo: cardiac cath with 2 stents Alcohol Use: Occasionally Drug Use: Marijuana Adult General Chief Complaint Chief Complaint: SHORTNESS OF BREATH HPI HPI Patient is a 56 year old [f__sex] who presents with [] Review of Systems Review of Systems Constitutional: Denies fever or chills [] Eyes: Denies change in visual acuity, redness, or eye pain [] HENT: Denies nasal congestion or sore throat [] Respiratory: Denies cough or shortness of breath [] Cardiovascular: No additional information not addressed in HPI [] GI: Denies abdominal pain, nausea, vomiting, bloody stools or diarrhea [] : Denies dysuria or hematuria [] Musculoskeletal: Denies back pain or joint pain [] Integument: Denies rash or skin lesions [] Neurologic: Denies headache, focal weakness or sensory changes [] Endocrine: Denies polyuria or polydipsia [] Current Medications Current Medications Current Medications Medications (Trade) Dose Ordered Sig/Tiana Start Time Stop Time Status Last Admin Dose Admin Acetaminophen (Tylenol) 650 mg PRN Q4HRS PRN 07/12/16 13:30 07/13/16 13:29 Albuterol/ Ipratropium (Duoneb) 3 ml RTQID 07/12/16 16:00 07/13/16 15:59 Aspirin (Nelson Aspirin) 325 mg 1X ONCE 07/12/16 12:30 07/12/16 12:31 DC 07/12/16 12:26 325 MG Fentanyl Citrate (Fentanyl 2ml Vial) 50 mcg 1X ONCE 07/12/16 12:30 07/12/16 12:31 DC 07/12/16 12:26 50 MCG Ipratropium [place] 0.5 mg 0.5 mg 1X ONCE 07/12/16 11:15 07/12/16 11:16 DC 07/12/16 11:14 0.5 MG Lorazepam (Ativan) 0.5 mg 1X ONCE 07/12/16 14:00 07/12/16 14:01 Methylprednisolone Sodium Succinate (Solu-Medrol 125mg Vial) 125 mg 1X ONCE 07/12/16 11:30 07/12/16 11:31 DC 07/12/16 12:13 125 MG Ondansetron HCl (Zofran) 4 mg PRN Q8HRS PRN 07/12/16 13:30 07/13/16 13:29 Sodium Chloride (Iv Sodium Chloride 0.9% 500ml Bag) 500 ml @ 500 mls/hr 1X ONCE 07/12/16 11:15 07/12/16 12:14 DC 07/12/16 11:13 500 MLS/HR Sodium Chloride (Normal Saline Flush) 10 ml 1X ONCE 07/12/16 11:15 07/12/16 11:16 DC 07/12/16 12:14 10 ML Allergies Allergies Allergies Coded Allergies Type Severity Reaction Last Updated Verified I S O L A T I O N *CONTACT* Allergy Unknown 07/05/16 Yes No Known Medication Allergies Allergy Unknown 07/05/16 Yes Physical Exam Physical Exam Constitutional: Well developed, well nourished, no acute distress, non-toxic appearance. [] HENT: Normocephalic, atraumatic, bilateral external ears normal, oropharynx moist, no oral exudates, nose normal. [] Eyes: PERRLA, EOMI, conjunctiva normal, no discharge. [] Neck: Normal range of motion, no tenderness, supple, no stridor. [] Cardiovascular:Heart rate regular rhythm, no murmur [] Lungs & Thorax: Bilateral breath sounds clear to auscultation [] Abdomen: Bowel sounds normal, soft, no tenderness, no masses, no pulsatile masses. [] Skin: Warm, dry, no erythema, no rash. [] Back: No tenderness, no CVA tenderness. [] Extremities: No tenderness, no cyanosis, no clubbing, ROM intact, no edema. [] Neurologic: Alert and oriented X 3, normal motor function, normal sensory function, no focal deficits noted. [] Psychologic: Affect normal, judgement normal, mood normal. [] Current Patient Data Vital Signs Vital Signs Date Time Temp Pulse Resp B/P Pulse Ox O2 Delivery O2 Flow Rate FiO2 07/12/16 12:26 26 100 Nasal Cannula 2.0 07/12/16 11:53 108 123/71 07/12/16 10:48 99.4 99.4 Lab Values Laboratory Tests Test 07/12/16 11:00 07/12/16 13:05 White Blood Count 36.7x10^3/uL (4.0-11.0) H Red Blood Count 4.21x10^6/uL (4.30-5.70) L Hemoglobin 8.9g/dL (13.0-17.5) L Hematocrit 29.9% (39.0-53.0) L Mean Corpuscular Volume 71fL (79-100) L Mean Corpuscular Hemoglobin 21pg (25-35) L Mean Corpuscular Hemoglobin Concent 30g/dL (31-37) L Red Cell Distribution Width 22.0% (11.5-14.5) H Platelet Count 376x10^3/uL (140-400) Neutrophils (%) (Auto) 92% (31-73) H Lymphocytes (%) (Auto) 4% (24-48) L Monocytes (%) (Auto) 4% (0-9) Eosinophils (%) (Auto) 0% (0-3) Basophils (%) (Auto) 0% (0-3) Neutrophils # (Auto) 33.8x10^3uL (1.8-7.7) H Lymphocytes # (Auto) 1.3x10^3/uL (1.0-4.8) Monocytes # (Auto) 1.3x10^3/uL (0.0-1.1) H Eosinophils # (Auto) 0.1x10^3/uL (0.0-0.7) Basophils # (Auto) 0.1x10^3/uL (0.0-0.2) Segmented Neutrophils % 92% (35-66) H Band Neutrophils % 1% (0-9) Lymphocytes % 2% (24-48) L Monocytes % 4% (0-10) Eosinophils % 1% (0-5) Platelet Estimate Adequate (ADEQUATE) Sodium Level 136mmol/L (136-145) Potassium Level 3.8mmol/L (3.5-5.1) Chloride Level 99mmol/L (98-107) Carbon Dioxide Level 30mmol/L (21-32) Anion Gap 7 (6-14) Blood Urea Nitrogen 12mg/dL (8-26) Creatinine 0.8mg/dL (0.7-1.3) Estimated GFR (Cockcroft-Gault) 99.6 BUN/Creatinine Ratio 15 (6-20) Glucose Level 135mg/dL (70-99) H Calcium Level 8.7mg/dL (8.5-10.1) Total Bilirubin 0.6mg/dL (0.2-1.0) Aspartate Amino Transferase (AST) 22U/L (15-37) Alanine Aminotransferase (ALT) 18U/L (16-63) Alkaline Phosphatase 119U/L (46-116) H Creatine Kinase 41U/L (39-308) Creatine Kinase MB (Mass) 1.0ng/mL (0.0-3.6) Creatine Kinase MB Relative Index % (0-4) Troponin I Quantitative < 0.017ng/mL (0.000-0.055) QW-Ngv-K-Type Natriuretic Peptide 91pg/mL (0-124) Total Protein 7.7g/dL (6.4-8.2) Albumin 2.6g/dL (3.4-5.0) L Albumin/Globulin Ratio 0.5 (1.0-1.7) L O2 Saturation 95% (92-99) Arterial Blood pH 7.40 (7.35-7.45) Arterial Blood pCO2 at Patient Temp 45mmHg (35-46) Arterial Blood pO2 at Patient Temp 82mmHg (75-108) Arterial Blood HCO3 27mmol/L (21-28) Arterial Blood Base Excess 2mmol/L (-3-3) Oxyhemoglobin 93.9% Methemoglobin 0.5% (0.0-1.9) Carbon Monoxide, Quantitative 0.3% (0.0-1.9) FiO2 2 lpm nc Laboratory Tests 07/12/16 11:00 Laboratory Tests 07/12/16 11:00 EKG EKG [] Radiology/Procedures Radiology/Procedures [] Course & Med Decision Making Course & Med Decision Making Pertinent Labs and Imaging studies reviewed. (See chart for details) This is an addendum to the previous note generated by this provider, Wanda Colin, who initially evaluated the patient. The plan will be to discharge the patient with close follow-up with Dr. Damon. I discussed the case with Dr. Damon who states he will fill a prescription for Ativan for the patient to picker feeder later today and he would like to see the patient on Friday for his ongoing anxiety and shortness of breath. Upon my reassessment, the patient is in no distress whatsoever and saturating near 100% on his usual 2 L NC and is very agreeable with this plan and states he will receive follow-up on Friday. Natan Disclaimer Natan Disclaimer This electronic medical record was generated, in whole or in part, using a voice recognition dictation system. Departure Departure Impression: Primary Impression: Dyspnea Additional Impression: Pulmonary fibrosis Disposition: HOME, SELF-CARE Admitting Physician: Other Condition: STABLE Referrals: JOHN DAMON MD (PCP) Patient Instructions: Anxiety and Panic Attacks, Obew-zp-Bokc, Pulmonary Fibrosis, Idiopathic Additional Instructions: Please fill your prescription as discussed and take your medications as prescribed. Return to the ER if you develop any worsening of your symptoms. Take your ativan as prescribed and all other medications. Return to the ER if you develop any worsening of your symptoms. Problem Qualifiers WANDA RODRIGUEZ DO Jul 12, 2016 13:56
[2016-07-12 14:00] VITALS: BP 118/76
[2016-07-12] MEDS ORDERED: LORAZEPAM 1 MG TABLET. PO ONE (14:00)
[2016-07-12] MEDS ORDERED: IPRATRPIUM/ALBUTEROL 0.5/2.5MG 3 ML NEBU. NEB SCH (16:00)
== END 2016-07-12 14:00 | disposition home or self-care (01) ==
LOC: ER 10:48
DX: J84.10 Pulmonary fibrosis, unspecified (principal); F41.9 Anxiety disorder, unspecified; D72.829 Elevated white blood cell count, unspecified; I11.9 Hypertensive heart disease without heart failure; I25.10 Atherosclerotic heart disease of native coronary artery without angina pectoris; I25.2 Old myocardial infarction; F12.10 Cannabis abuse, uncomplicated; Z95.5 Presence of coronary angioplasty implant and graft; Z99.81 Dependence on supplemental oxygen; Z79.899 Other long term (current) drug therapy; Z91.041 Radiographic dye allergy status; Z87.01 Personal history of pneumonia (recurrent)
CPT/HCPCS: 36415; 36600; 71010; 80053; 82550; 82553; 82805; 83880; 84484; 85007; 85027; 93005; 94250; 94640; 96361; 96374; 96375; 99285; J2930; J3010; J7040; J7644